=== PATIENT | female | born 1980 | race Caucasian/White ===

== ENCOUNTER 2019-08-01 11:32 | Emergency (ER) | payer MEDICARE, MEDICAID ==
--- OUTSIDE RECORDS SUMMARY | 2019-08-01 11:51 | XMS REPORT | Summary of Care ---
:1980 Author Organization [facility] Address [address] [address] Care Team Providers Name Role Phone Marj Tamayo Primary Care Provider Reason for Visit Reason Comments Thoracic Back Pain Encounter Details Date Type Department Care Team Description 07/05/2019 Office Visit [facility] - Zehra Huang, CRISTINA Midline thoracic back [facility] 10 [facility] pain, unspecified Therapy [address] chronicity (Primary [address] [place] [address] Dx) [address] [phone] [place] [address] [phone] Allergies Active Allergy Reactions Severity Noted Date Comments Ambien Swelling 06/01/2019 Bactrim Ds Hives Medium 06/01/2019 Duloxetine Hcl Other 06/01/2019 Worsening anxiety and panic documented as of this encounter (statuses as of 07/05/2019) Medications Medication Sig Dispensed Refills Start Date End Date Status Mirtazapine 45 MG Oral Take by mouth. 0 Active Tab ondansetron (ZOFRAN ODT) Take 4 mg by 0 Active 4 MG Oral TABLET mouth ONCE DISPERSIBLE NEEDED. ranitidine (ZANTAC) 300 Take 300 mg by 0 Active MG Oral Tab mouth DAILY. ALBUTEROL SULFATE ER PO Take by mouth. 0 Active Ascorbic Acid (VITAMIN Take by mouth. 0 Active C) 100 MG Oral Chew Tab BIOTIN PO Take by mouth. 0 Active Lansoprazole 15 MG Oral Take 15 mg by 60 Cap 3 06/24/2019 Active CAPSULE DELAYED RELEASE mouth TWICE DAILY. documented as of this encounter (statuses as of 07/05/2019) Active Problems No known active problemsdocumented as of this encounter (statuses as of 2018) Social History Tobacco Use Types Packs/Day Years Used Date Heavy Tobacco Smoker Cigarettes 1.5 27 Smokeless Tobacco: Never Used Sex Assigned at Date Recorded Not on file Job Start Date Occupation Industry Not on file Not on file Not on file Travel History Travel Start Travel End No recent travel history available. documented as of this encounter Last Filed Vital Signs Not on filedocumented in this encounter Progress Notes Zehra Huang, PT - 07/05/2019 9:30 AM EDT [facility] Treatment Note Outpatient Physical [facility] [address] [place] [id number] Treatment Number: 3 Referring Physician: Marj Tamayo Primary Diagnosis: ICD-9-CM ICD-10-CM 1. Midline thoracic back pain, unspecified chronicity 724.1 M54.6 Plan of Care Expiration Date: Time In: 919 Time Out: 50 Total Session Minutes: 30 Pain at Start of Care: 12/16 Pain at End of Care: Subjective Comments: Was sore after last treatment for a day or two but then felt better at the right shoulder blade. Interventions: Therapeutic Exercises (19753) Number of Exercises?: 8 Total Minutes (all Therapeutic Exercise): 20 Exercise #1 Exercise Name: prone i Reason for Exercise: Strengthening Location/Body Area: Shoulder;Thoracic Spine Sets/Reps: 10 Exercise #2 Exercise Name: cervical retraction Reason for Exercise: Strengthening Location/Body Area: Cervical Spine Sets/Reps: 10 Exercise #5 Exercise Name: open book Reason for Exercise: Joint Mobility Location/Body Area: Thoracic Spine Sets/Reps: 8 Exercise #6 Exercise Name: spinal rotation Reason for Exercise: Joint Mobility Location/Body Area: Cervical Spine Sets/Reps: 8 Exercise #7 Exercise Name: cat and camel Reason for Exercise: Joint Mobility Location/Body Area: Thoracic Spine Sets/Reps: 8 Estim Unattended (Commercial [id number]) Reason for Use: Pain Control Body Area: right side thoracic Waveform Used: Interferential Total Minutes: 10 Assessment: Patient demonstrates improved recall of HEP. Patient also reports ongoing difficulty in reaching, lifting, prolonged positions. Skilled Physical Therapy services are required to address ongoing functional and objective limitations/impairments including decreased scapular stabilizer strength, impaired posture, decreased cervical and thoracic ROM, pain Plan for Next Visit: Continue per POC. Add more strengthening as tolerated. Total UNTIMED Code Treatment Minutes: 10 Total TIMED Code Treatment Minutes: 20 Total Treatment Minutes: 30 Author: Zehra Huang, CRISTINA 07/05/2019 09:47 documented in this encounter Plan of Treatment Date Type Specialty Care Team Description 07/07/2019 Office Visit Physical Therapy Zehra Huang, PT [address] [place] [address] [place] [address] [phone] 07/08/2019 Office Visit Family Practice Majr Tamayo NP [address] [place] [address] [phone] 07/08/2019 Ancillary Procedure Radiology 07/13/2019 Office Visit Physical Therapy Zehra Huang, PT [address] [place] [address] [place] [address] [phone] 07/13/2019 Office Visit Physical Therapy Zehra Huang, PT [address] [place] [address] [place] [address] [phone] 07/15/2019 Office Visit Physical Therapy Zehra Huang, PT [address] [place] [place] [address] [phone] 07/27/2019 Office Visit Gastroenterology Lisa Allen NP [address] [address] [phone] Health Maintenance Due Date Last Done Comments MEDICARE ANNUAL WELLNESS VISIT 1980 PAP SMEAR 1980 PNEUMOCOCCAL 0-64 YRS (1 of - 1985 PPSV23) HIV SCREENING 1994 LIPID DISORDER SCREENING 1997 MAMMOGRAM (SCREENING) 2019 INFLUENZA VACCINE (#1) 2019 DEPRESSION SCREENING 06/15/2020 06/15/2019 HPV IMMUNIZATION SERIES Aged Out No longer eligible based on patient's age to complete this topic MENINGOCOCCAL VACCINE IMM Aged Out No longer eligible based on patient's age to complete this topic documented as of this encounter Results Not on filedocumented in this encounter Visit Diagnoses Diagnosis Midline thoracic back pain, unspecified chronicity - Primary documented in this encounter Insurance Payer Benefit Plan / Subscriber ID Effective Dates Phone Address Type Group [facility] xxxxxxxxxxxx 2019-Prese [employer] MEDICARE MEDICARE BLUE nt ADVANTAGE PPO (302/802) MEDICAID [facility] xxxxxxxx 2019-Presen Medicaid [place] MEDICAID t documented as of this encounter
--- OUTSIDE RECORDS SUMMARY | 2019-08-01 11:51 | XMS REPORT | Summary of Care ---
:1980 Author Organization [facility] Address [address] [address] Care Team Providers Name Role Phone Marj Tamayo Primary Care Provider Reason for Visit Reason Comments Thoracic Back Pain Refer to Department Only (Routine) Status Reason Specialty Diagnoses / Referred By Referred To Procedures Contact Contact Pending Review Physical Diagnoses Midline thoracic back pain, unspecified chronicity [facility] [address] [address] [address] Phone: [place], [place] [phone] Fax: Encounter Details Date Type Department Care Team Description 06/25/2019 Office Visit [facility] - Zehra Huang PT Midline thoracic back [address] pain, unspecified Therapy [address] chronicity (Primary [address] [place] [address] Dx) [address] [phone] [place] [phone] Allergies Active Allergy Reactions Severity Noted Date Comments Ambien Swelling 06/01/2019 Bactrim Ds Hives Medium 06/01/2019 Duloxetine Hcl Other 06/01/2019 Worsening anxiety and panic documented as of this encounter (statuses as of 06/25/2019) Medications Medication Sig Dispensed Refills Start Date [...] as of this encounter (statuses as of 06/25/2019) Active Problems No known active problemsdocumented as [...] encounter Progress Notes Zehra Huang, PT - 06/25/2019 8:30 AM EDT [facility] Initial Evaluation Outpatient Physical Therapy [facility] [address] [place] [phone] Patient: Claudia Benson : 1980 Date of Service: 06/25/2019 Referring Physician: Marj Tamayo Primary Diagnosis: ICD-9-CM ICD-10-CM 1. Midline thoracic back pain, unspecified chronicity 724.1 M54.6 Time In: 0900 Time Out: 1000 Subjective: She is a 39-y.o.-year-old female who presents for outpatient physical therapy with a chief complaint of neck and mid back pain. Pain starts at C7 and radiates into the back. No pain at thebase of the head. Feels like there is a nerve pinched on the right between the shoulder blade and the spine and then sometimes the first four fingers go numb/tingling. If uses the arm a lot the numbness increases. Fingers also get shaky when she tries to open the hand. The right 4th and 5th fingers on the left also go numb. Gets migraines and headaches. Jaw locks and pops on the left. Takes tylenol for pain. Pain fluctuates between 5/10 and 10/10 on a daily basis. Prolonged positions increase backand neck pain. Using the arm increases n/t on the right. Yelling and opening the mouth too wide increases the left side jaw pain. Inquired about muscle relaxer's which I discussed was not in my scope. C2-C7 small disc bulge per MRI in 2017. Prior Functional Status: pain with adl's Current Functional Status: unable to complete adls without rest breaks and modifications Objective: Past Medical History: Diagnosis Date Bipolar 1 disorder (HCC) not seeing Depression BiPolar Gastroparesis GERD (gastroesophageal reflux disease) Past Surgical History: Procedure Laterality Date LAPAROSCOPIC TUBAL LIGATION 2009 Current Outpatient Medications: ALBUTEROL SULFATE ER PO, Take by mouth., Disp: , Rfl: Ascorbic Acid (VITAMIN C) 100 MG Oral Chew Tab, Take by mouth., Disp: , Rfl: BIOTIN PO, Take by mouth., Disp: , Rfl: Lansoprazole 15 MG Oral CAPSULE DELAYED RELEASE, Take 15 mg by mouth TWICE DAILY., Disp: 60 Cap, Rfl: 3 Mirtazapine 45 MG Oral Tab, Take by mouth., Disp: , Rfl: ondansetron (ZOFRAN ODT) 4 MG Oral TABLET DISPERSIBLE, Take 4 mg by mouth ONCE NEEDED., Disp: , Rfl: ranitidine (ZANTAC) 300 MG Oral Tab, Take 300 mg by mouth DAILY., Disp: , Rfl: Allergies Allergen Reactions Bactrim Ds Hives Ambien Swelling Cymbalta [Duloxetine Hcl] Other Worsening anxiety and panic Posture: Forward head with rounded shoulders Palpation: Pain with palpation to masseters, left upper trap, bilateral cervical and thoracic parapsinals, right rhomboid/mid trap. Pain at Baseline: 5/10 Cervical AROM: Flexion: WNL with pain from T3 to lumbar spine Extension: WNL Rotation R: WNL Rotation L: 60 with right side shoulder blade pain Sidebending R: 25 degrees with contralateral side Sidebending L: 25 degrees with contralateral pain Protraction: WNL Retraction: WNL with posterior pain in paraspinals Cervical PROM with Overpressure: Full ROM with upper trap tautness Neurological Review: Upper Extremity Myotomes: intact Upper Extremity Dermatomes: intact Upper Extremity Reflexes: 2+ Joint Mobility Assessment: hypomobilty noted at thoracic spine but patient also was guarding d/t pain Tinnels positive on the right Special Tests: Spurlings:negative Distraction: negative ULTTA: Negative on the left, positive for median nerve on right. Ulnar nerve test increases upper arm pain but denies n/t. Cervical Flexion/Rotation Test: negative First Rib Spring: negative Alar Ligament Test: negative Thoracic ROM 40% bilaterally with central thoracic pain Jaw deviates to the left when opening and "pops" at end range Plan of Care Plan of Care Start Date: 06/25/19 Plan of Care Expiration Date: 09/25/19 Prior Function Comment: pain with adl's Current Function Comment: unable to complete adls without rest breaks and modifications Rehabilitative Prognosis: Guarded Planned Intervention(s): PT Eval Moderate Complexity (90646);Therapeutic Exercise (Timed) (65257);Ultrasound (Timed) (99830);Manual Therapy (Timed) ( 74168);Moist Hot Pack (95803);Cold Pack (40849) Frequency of Treatments: 2 times weekly Duration of Treatments: 3 months History Components: Moderate (1-2 personal factors and/or comorbidities) Examination of Body Systems/Components: Moderate (Addressing a total of 3 or more elements) Clinical Presentation: Evolving - changing/inconsistent clinical characteristics (Moderate) Clinical Decision Making (complexity): Moderate Treatment Number: 1 Total Time of Evaluation: 30 Outcome Tools Used: FOTO Assessment: Patient presents with diffuse reports of pain. Displays decreased cervical left rotation and bilateral lateral flexion with decreased thoracic rotation and hypomobility. Does not tolerate palpation to thoracic musculature but trigger points noted in right levator scap, upper trap and bilateral paraspinals. Tightness in bilateral masseter may be contributing to TMJ dysfunction. Positive median and ulnar nerve ULTT noted. Postural impairments are contributing to soft tissue dysfunctions. Would benefit from therapy to improve posture, scapular stabilizer and deep cervical flexor strength. Was Physical Therapy treatment performed at this visit? Yes: Interventions: Therapeutic Exercises (97121) Patient Education/Home Exercise Program: HEP given and reviewed; posture discussed as well as dx/muscle imbalances Number of Exercises?: 5 Total Minutes (all Therapeutic Exercise): 30 Exercise #1 Exercise Name: Scap retraction Reason for Exercise: Strengthening Location/Body Area: Shoulder;Thoracic Spine Sets/Reps: 10 Exercise #2 Exercise Name: cervical retraction Reason for Exercise: Strengthening Location/Body Area: Cervical Spine Sets/Reps: 10 Exercise #3 Exercise Name: median nerve glide Reason for Exercise: Muscle Performance Location/Body Area: Thoracic Spine Sets/Reps: 8 Exercise #4 Exercise Name: TMJ popsickle stick stretch Reason for Exercise: Flexibility Location/Body Area: Cervical Spine Sets/Reps: 2x10 seconds Exercise #5 Exercise Name: open book Reason for Exercise: Joint Mobility Location/Body Area: Thoracic Spine Sets/Reps: 8 Plan for Next Visit: Continue per POC. Estim prn, review HEP. Heat with therapeutic exercise prn Evaluation Complexity Assessment: History Components: Moderate (1-2 personal factors and/or comorbidities) Examination of Body Systems/Components: Moderate (Addressing a total of 3 or more elements) Clinical Presentation: Evolving - changing/inconsistent clinical characteristics (Moderate) Clinical Decision Making (complexity): Moderate Treatment Number: 1 Total Time of Evaluation: 30 Total Number of Timed Code Treatment Minutes: 30 Author: Zehra Huang PT 06/25/2019 13:53 documented in this encounter Plan of Treatment Date Type Specialty Care Team Description 06/29/2019 Office Visit Physical Therapy Zehra Huang, PT [address] [place] [address] [phone] 07/01/2019 Office Visit Physical Therapy Zehra Huang, PT [address] [place] [address] [phone] 07/02/2019 Nurse/Clinical Support Internal Medicine 07/05/2019 Office Visit Physical Zehra Rasmussen, PT [address] [place] [address] [phone] 07/07/2019 Office Visit Physical Therapy Zehra Huang, PT [address] [place] [address] [phone] 07/08/2019 Office Visit Family Practice Marj Tamayo, CHRIS [address] [place] [address] [phone] 07/08/2019 Ancillary Procedure Radiology 07/27/2019 Office Visit Gastroenterology Lisa Allen, AVIONICS TECHNICIAN [address] [address] [phone] Health Maintenance Due Date Last Done Comments MEDICARE ANNUAL WELLNESS VISIT 1979 PAP SMEAR 1979 PNEUMOCOCCAL 0-64 YRS (1 of 1 - 1985 PPSV23) HIV SCREENING 1994 LIPID [...] ID Effective Dates Phone Address Type Group [facility] xxxxxxxxxxxx 2019-Prese [employer] MEDICARE MEDICARE BLUE nt ADVANTAGE PPO (302/802) MEDICAID [facility] xxxxxxxx 2019-Presen Medicaid [place] MEDICAID t documented as of this encounter
--- OUTSIDE RECORDS SUMMARY | 2019-08-01 11:51 | XMS REPORT | Summary of Care ---
:1980 Author Organization [facility] Address [address] [address] Care Team Providers Name Role Phone Marj Tamayo Primary Care Provider Reason for Visit Reason Comments Thoracic Back Pain Encounter Details Date Type Department Care Team Description 07/15/2019 Office Visit [facility] - Zehra Huang, CRISTINA Midline thoracic back [place] [facility] pain, unspecified Therapy [address] chronicity (Primary [address] [place] [address] Dx) [address] [phone] [place] [address] [phone] Allergies Active Allergy Reactions Severity Noted Date Comments Ambien Swelling 06/01/2019 Bactrim Ds Hives Medium 06/01/2019 Duloxetine Hcl Other 06/01/2019 Worsening anxiety and panic documented as of this encounter (statuses as of 07/15/2019) Medications Medication Sig Dispensed Refills Start Date End Date Status ondansetron (ZOFRAN ODT) Take 4 mg by [...] Active CAPSULE DELAYED RELEASE mouth TWICE DAILY. Mirtazapine 45 MG Oral Take 1 Tab by 30 Tab 3 07/08/2019 Active TabIndications: Bipolar mouth DAILY. 1 disorder (HCC) Varenicline Tartrate 0.5 Take 1 Package 1 Kit 0 07/08/2019 Active MG X 11 & 1 MG X 42 Oral by mouth MiscIndications: Tobacco DIRECTED. dependence gabapentin (NEURONTIN) Take 1 Cap by 60 Cap 1 07/08/2019 Active 100 MG Oral mouth TWICE CapIndications: Numbness DAILY. and tingling in right hand diclofenac (VOLTAREN) 1 2 g by Topical 1 Tube 1 07/08/2019 Active % Transdermal route FOUR TIMES GelIndications: Spinal DAILY. stenosis of cervicothoracic region documented as of this encounter (statuses as of 07/15/2019) Active Problems Problem Noted Date GERD (gastroesophageal reflux disease) Gastroparesis Depression Bipolar 1 disorder Overview: not seeing MH documented as of this encounter (statuses as of 07/15/2019) Social History Tobacco Use Types Packs/Day Years [...] on filedocumented in this encounter Progress Notes Zehar Huang, PT - 07/15/2019 9:00 AM EST [facility] Treatment Note Outpatient Physical Therapy Services [facility] [address] [place] [phone] Treatment Number: 4 Referring Physician: Marj Tamayo Primary Diagnosis: ICD-9-CM ICD-10-CM 1. Midline thoracic back pain, unspecified chronicity 724.1 M54.6 Plan of Care Expiration Date: Time In: 0900 Time Out: 929 Total Session Minutes: 30 Pain at Start of Care: 5/10 Pain at End of Care: Subjective Comments: Whole back is hurting her. Doesn't feel like gabapentin is helping her back pain. Right hand and shoulder blade has been better but no change in the other pains. Wonders if she should be on muscle relaxers. Interventions: Therapeutic Exercises (01206) Number of Exercises?: 8 Total Minutes (all Therapeutic Exercise): 20 Exercise #2 Exercise Name: cervical retraction Reason for Exercise: Strengthening Location/Body Area: Cervical Spine Sets/Reps: 10 Exercise #3 Exercise Name: trunk rotation Reason for Exercise: Joint Mobility Location/Body Area: Lumbar Spine Sets/Reps: 8 Exercise #4 Exercise Name: piriformis stretch Reason for Exercise: Flexibility Location/Body Area: Lumbar Spine Sets/Reps: 3x30 seconds Exercise #5 Exercise Name: open book Reason for Exercise: Joint Mobility Location/Body Area: Thoracic Spine Sets/Reps: 8 Estim Unattended (Commercial 08909) Reason for Use: Pain Control Body Area: right side thoracic Waveform Used: Interferential Total Minutes: 10 Improved tolerance to open book and cervical rotation. Assessment: Patient demonstrates improved thoracic rotation. Diffuse complaints of pain with fear avoidance behaviors noted. Patient also reports ongoing difficulty in sleeping, lifting, reaching. Skilled Physical Therapy services are required to address ongoing functional and objective limitations/ impairments including decreased ROM, impaired posture, decreased core and scapular stabilizer strength. Plan for Next Visit: Continue per POC. Add LTR and piriformis to HEP Total UNTIMED Code Treatment Minutes: 10 Total TIMED Code Treatment Minutes: 20 Total Treatment Minutes: 30 Author: Zehra Huang PT 07/15/2019 11:01 documented in this encounter Plan of Treatment Date Type Specialty Care Team Description 07/19/2019 Ancillary Procedure Radiology 07/19/2019 Ancillary Procedure Radiology 07/22/2019 Office Visit Physical Therapy Zehra Huang, PT [address] [place] [address] [phone] 07/27/2019 Office Visit Gastroenterology Lisa Allen NP [address] [address] [phone] 07/29/2019 Office Visit Physical Therapy Zehra Huang, PT [address] [place] [address] [phone] 08/03/2019 Office Visit Family Practice Marj Tamayo NP [address] [place] [address] [phone] Health Maintenance Due Date Last Done Comments MEDICARE ANNUAL WELLNESS VISIT 1980 PNEUMOCOCCAL 0-64 YRS (1 of 1 - 1985 PPSV23) HIV SCREENING 1994 LIPID DISORDER SCREENING 1997 INFLUENZA VACCINE (#1) 2019 DEPRESSION SCREENING 06/15/2020 06/15/2019 MAMMOGRAM (SCREENING) 07/08/2020 07/08/2019 PAP SMEAR 05/26/2021 05/26/2018 HPV IMMUNIZATION SERIES Aged Out No longer eligible based on patient's age to complete this topic MENINGOCOCCAL VACCINE IMM Aged Out No longer eligible based on patient's age to complete this topic documented as of this encounter Goals Goal Patient Goal Associated Recent Patient-Stated? Author Type Problems Progress Depression Depression No lonny Tamayo (PHQ-9) Marj, total score < 5 [employer] Note: This is an individualized treatment (depression) goal for Claudia Benson: Displayed above is your goal for a depression screening (PHQ-9) score that would indicate good control of your depression. Keep a regular sleep schedule Lifestyle Marj Flores NP Note: This is an individualized lifestyle goal for Claudia Benson: Please maintain a regular sleep schedule. This may help with some symptoms of depression. Take all prescribed medications as Self-management No Marj Tamayo NP directed Note: This is an individualized self-management goal for Claudia Benson: Please take all prescribed medications as directed. 1. Do not skip doses. If you cannot afford your medications, talk with your doctor. 2. Use a pill reminder system such as a pill box if needed. Your pharmacist can help you with this. 3. Contact your Pharmacy 5 days before your medication runs out. If you cannot take your medications for any reasons, talk with your doctor. 4. Please bring all of your medication bottles and inhalers (or a list of all your medications/inhalers) with you to every visit. Potential barriers to meeting all of your care plan goals will continue to be addressed on an ongoing basis. documented as of this encounter Results Not on filedocumented in this encounter Visit Diagnoses Diagnosis Midline thoracic back pain, unspecified chronicity - Primary documented in this encounter Insurance Payer Benefit Plan / Subscriber ID Effective Dates Phone Address Type Group [employer] xxxxxxxxxxxx 2019-[employer] MEDICARE MEDICARE BLUE nt ADVANTAGE PPO (302/802) MEDICAID [facility] xxxxxxxx 2019-Presen Medicaid [place] MEDICAID t documented as of this encounter
--- OUTSIDE RECORDS SUMMARY | 2019-08-01 11:51 | XMS REPORT | Summary of Care ---
:1980 Author Organization [facility] Address [address] [address] Care Team Providers Name Role Phone Marj Tamayo Primary Care Provider Reason for Visit Reason Comments Thoracic Back Pain Encounter Details Date Type Department Care Team Description 07/01/2019 Office Visit [facility] - Zehra Huang, CRISTINA Midline thoracic back [place] [facility] [address] pain, unspecified Therapy [address] chronicity (Primary [address] [place] [place] [address] Dx) [address] [phone] [place] [address] [phone] Allergies Active Allergy Reactions Severity Noted Date Comments Ambien Swelling 06/01/2019 Bactrim Ds Hives Medium 06/01/2019 Duloxetine Hcl Other 06/01/2019 Worsening anxiety and panic documented as of this encounter (statuses as of 07/01/2019) Medications Medication Sig Dispensed Refills Start Date [...] as of this encounter (statuses as of 07/01/2019) Active Problems No known active problemsdocumented as [...] encounter Progress Notes Zehra Huang, PT - 07/01/2019 11:00 AM EDT [facility] Treatment Note Outpatient Physical Therapy [facility] [address] [place] [id number] Treatment Number: 2 Referring Physician: Marj Tamayo Primary Diagnosis: ICD-9-CM ICD-10-CM 1. Midline thoracic back pain, unspecified chronicity 724.1 M54.6 Plan of Care Expiration Date: Time In: 1050 Time Out: 1120 Total Session Minutes: 30 Pain at Start of Care: 5/10 Pain at End of Care: 5/10 Subjective Comments: Right shoulder blade pinch is still there. Was very sore for a day after PT but than the right arm felt good for a few days. Interventions: Therapeutic Exercises (88096) Total Minutes (all Therapeutic Exercise): 20 Exercise #1 Exercise Name: Scap retraction Reason [...] Mobility Location/Body Area: Thoracic Spine Sets/Reps: 8 Modalities Modalities Needed?: Estim Unattended (Commercial [id number]) Estim Unattended (Commercial [id number]) Reason for Use: Pain Control Body Area: right side thoracic Waveform Used: Interferential Total Minutes: 10 Assessment: Patient demonstrates good recall of HEP but requires cueing for body mechanics. Patient also reports ongoing difficulty in sleeping, reaching, lifting, prolonged positions. Skilled Physical Therapy services are required to address ongoing functional and objective limitations/impairmentsincluding decreased cervical and thoracic ROM, impaired posture, decreased neural length of median nerve on right, decreased scapular stabilizer strength. Plan for Next Visit: Continue per POC. Total UNTIMED Code Treatment Minutes: 10 Total TIMED Code Treatment Minutes: 20 Total Treatment Minutes: 30 Author: Zehra Huang, PT 07/01/2019 11:54 documented in this encounter Plan of Treatment Date Type Specialty Care Team Description 07/02/2019 Nurse/Clinical Support Internal Medicine 07/05/2019 Office Visit Physical Therapy Zehra Huang, PT [address] [facility] [place] [address] [phone] 07/07/2019 Office Visit Physical Therapy Zehra Huang, PT [address] [facility] [place] [address] [phone] 07/08/2019 Office Visit Family Practice Marj Tamayo NP [address] [place] [address] [phone] 07/08/2019 Ancillary Procedure Radiology 07/27/2019 Office Visit Gastroenterology Lisa Allen NP [address] [address] Health Maintenance Due Date Last Done Comments [...] ID Effective Dates Phone Address Type Group DEBORAH COKER xxxxxxxxxxxx 2019-Prese [employer] MEDICARE MEDICARE BLUE nt ADVANTAGE PPO ([phone]) MEDICAID [facility] xxxxxxxx 2019-Presen Medicaid [place] MEDICAID t documented as of this encounter
--- OUTSIDE RECORDS SUMMARY | 2019-08-01 11:51 | XMS REPORT | Summary of Care ---
:1980 Author Organization [facility] Address [address] [facility] [address] [address] Care Team Providers Name Role Phone Marj Tamayo Primary Care Provider Reason for Visit Reason Comments Follow-up 1-month follow-up on gastroparesis. Encounter Details Date Type Department Care Team Description 07/27/2019 Office Visit Marianna Allen Irritable bowel syndrome with constipation (Primary Dx); Gastroenterology/Hep Lisa Perez NP Gastroparesis atology [id number] [facility] [address] [address] [place] [address] Allergies Active Allergy Reactions Severity Noted Date Comments Ambien Swelling 06/01/2019 Bactrim Ds Hives Medium 06/01/2019 Duloxetine Hcl Other 06/01/2019 Worsening anxiety and panic documented as of this encounter (statuses as of 07/27/2019) Medications Medication Sig Dispensed Refills Start Date End Date Status ondansetron (ZOFRAN Take 4 mg by 0 Active ODT) 4 MG Oral TABLET mouth ONCE DISPERSIBLE NEEDED. ALBUTEROL SULFATE ER Take by 0 Active PO mouth. Ascorbic Acid (VITAMIN Take by 0 Active C) 100 MG Oral Chew mouth. Tab BIOTIN PO Take by 0 Active mouth. Lansoprazole 15 MG Take 15 mg by 60 Cap 3 06/24/2019 Active Oral CAPSULE DELAYED mouth TWICE RELEASE DAILY. Mirtazapine 45 MG Oral Take 1 Tab by 30 Tab 3 07/08/2019 Active TabIndications: mouth DAILY. Bipolar 1 disorder (HCC) Varenicline Tartrate Take 1 1 Kit 0 07/08/2019 Active 0.5 MG X 11 & 1 MG X Package by 42 Oral mouth MiscIndications: DIRECTED. Tobacco dependence gabapentin (NEURONTIN) Take 1 Cap by 60 Cap 1 07/08/2019 Active 100 MG Oral mouth TWICE CapIndications: DAILY. 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 Gastroparesis lamoTRIgine 50 MG Oral Take 50 mg by 60 Tab 0 07/20/2019 Active TABLET mouth TWICE DISPERSIBLEIndications DAILY. Take : Bipolar 1 disorder one tablet (HCC) daily for one week, then increase to one tablet twice daily. famotidine (PEPCID) 20 Take 1 Tab by 60 Tab 0 07/20/2019 Active MG Oral mouth TWICE TabIndications: DAILY. Gastroesophageal reflux disease, esophagitis presence not specified linaCLOtide 72 MCG Take 1 Cap by 30 Cap 0 07/27/2019 Active Oral Cap mouth DAILY. ranitidine (ZANTAC) Take 300 mg 90 Tab 3 07/20/2019 Discontinued 300 MG Oral by mouth 9 TabIndications: DAILY. Gastroparesis Nutritional Take 1 Bottle 30 Bottle 3 07/20/2019 Discontinued Supplements (ENSURE by mouth 9 COMPLETE SHAKE) Oral DAILY. 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 Never 07/20/2019 How many drinks containing alcohol do you have on a typical Not asked day when you are drinking? How often do you have six or more drinks on one occasion? Not asked Sex Assigned at Date Recorded Not on file Job Start Date Occupation Industry Not on file Not on file Not on file Travel History Travel Start Travel End No recent travel history available. documented as of this encounter Last Filed Vital Signs Vital Sign Reading Time Taken Comments Blood Pressure 112/68 07/27/2019 8:36 AM EST Pulse 66 07/27/2019 8:36 AM EST Temperature 36.4 07/27/2019 8:36 AM EST C (97.6 F) Respiratory Rate - - Oxygen Saturation - - Inhaled Oxygen Concentration - - Weight 44.9 kg (99 lb) 07/27/2019 8:36 AM EST Height 154.9 cm (5' 1") 07/27/2019 8:36 AM EST Body Mass Index 18.71 07/27/2019 8:36 AM EST documented in this encounter Patient Instructions Patient InstructionsLisa Allen NP - 07/27/2019 8:20 AM EST1. Will try Linzess as directed, once you start this you will stop the Miralax 2. Continue the Lansoprazole and Reglan as directed 3. Follow up in the next 2-4 weeks If you have not already been screened for Hepatitis C we would be happy to do that for you today. Currently we recommend screening for hepatitis C virus (HCV ) infection in persons at high risk for infection, and to adults born between 1945 and 1965. Thank you for choosing the [facility] for your needs today! -Lisa Allen N.P. , Please call if you need to cancel or change your appt. time. Thank you for choosing [facility] for your health care needs, and for consulting with [facility] today. You may receive a survey following this visit, or after an upcoming hospital stay. As easy as it is to feel overloaded with surveys, we are required to send them out randomly and they do provide important feedback so that we may serve your needs in the best way. Please do take the few minutes required to complete the survey if you receive one. We get them too, after seeing the doctor, and they only take a few minutes to complete. documented in this encounter Progress Notes Lisa Allen NP - 07/27/2019 8:20 AM EST PATIENT: Claudia Benson : 1980 DATE OF SERVICE: 07/27/2019 REFERRING PRACTITIONER: Lisa Allen PRIMARY CARE PROVIDER: Marj Tamayo CHIEF COMPLAINT: Chief Complaint Patient presents with Follow-up 1-month follow-up on gastroparesis. Subjective HISTORY OF PRESENT ILLNESS: Claudia Benson is a 39-y.o. female who presents for a follow-up. She reports abdominal pain, and constipation cycles. In recent weeks had been having increased nausea, a change in PPI did not provide relief, she was seen by her PCP whom placed her on Reglan which she feels is helping. She now complains of constipationno longer relieved by her Miralax. Today her biggest complaint of of bloating and gas. She admits that she is not eating much, she relates due to her gastroparesis however likely also complicated by her depression and bipolar. Was recently restarted on her psychiatric medications by her PCP. She reports having been on Linzess in the past. Denies dysphagia, vomiting, melena, hamatemesis, hematochezia, diarrhea, jaundice, fevers, chills, night sweats, weight loss, easy bruising, chest pain, shortness of breath, dysuria, hematuria, pyuria,joint pains, acholic stools, dark urine or systemic pruritis. Review of previous records from [facility]: 04/02/2018 EGD positive for gastritis, h pylori negative. 04/02/2018 colonoscopy positive for 1 small hyperplastic polyp, otherwise unremarkable. 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 Ascorbic Acid (VITAMIN C) 100 MG Oral Chew Tab Take by mouth. BIOTIN PO Take by mouth. diclofenac (VOLTAREN) 1 % Transdermal Gel 2 g by Topical route FOUR TIMES DAILY. famotidine (PEPCID) 20 MG Oral Tab Take 1 Tab by mouth TWICE DAILY. gabapentin (NEURONTIN) 100 MG Oral Cap Take 1 Cap by mouth TWICE DAILY. lamoTRIgine 50 MG Oral TABLET DISPERSIBLE Take 50 mg by mouth TWICE DAILY. Take one tablet daily for one week, then increase to one tablet twice daily. Lansoprazole 15 MG Oral CAPSULE DELAYED RELEASE Take 15 mg by mouth TWICE DAILY. linaCLOtide 72 MCG Oral Cap Take 1 Cap by mouth DAILY. metoclopramide (REGLAN) 10 MG Oral Tab Take 1 Tab by mouth FOUR TIMES DAILY. Mirtazapine 45 MG Oral Tab Take 1 Tab by mouth DAILY. ondansetron (ZOFRAN ODT) 4 MG Oral TABLET DISPERSIBLE Take 4 mg by mouth ONCE NEEDED. Varenicline Tartrate 0.5 MG X 11 & 1 MG X 42 Oral Misc Take 1 Package by mouth DIRECTED. No current facility-administered medications for this visit. Allergies Allergen Reactions Bactrim Ds Hives Ambien Swelling Cymbalta [Duloxetine Hcl] Other Worsening anxiety and panic Social History Socioeconomic History Marital status: Single Spouse name: Not on file Number of children: Not on file Years of education: Not on file Highest education level: Not on file Occupational History Not on file Social Needs Financial resource strain: Not on file Food insecurity: Worry: Not on file Inability: Not on file Transportation needs: Medical: Not on file Non-medical: Not on file Tobacco Use Smoking status: Heavy Tobacco Smoker Packs/day: 1.50 Years: 27.00 Pack years: 40.50 Types: Cigarettes Smokeless tobacco: Never Used Substance and Sexual Activity Alcohol use: Never Frequency: Never Drug use: Yes Types: Marijuana Sexual activity: Yes Partners: Male Comment: tubal Lifestyle Physical activity: Days per week: Not on file Minutes per session: Not on file Stress: Not on file Relationships Social connections: Talks on phone: Not on file Gets together: Not on file Attends bahai service: Not on file Active member of club or organization: Not on file Attends meetings of clubs or organizations: Not on file Relationship status: Not on file Intimate partner violence: Fear of current or ex partner: Not on file Emotionally abused: Not on file Physically abused: Not on file Forced sexual activity: Not on file Other Topics Concern Not on file Social History Narrative Not on file REVIEW OF SYSTEMS: All remaining review of systems was negative except for as noted in the history of present illness/subjective. Objective PHYSICAL EXAMINATION: VITALS: BP 112/68 | Pulse 66 | Temp 97.6 F (36.4 C) | Ht 5' 1" ( 1.549 m) | Wt 99 lb (44.9 kg) | LMP 06/28/2019 | BMI 18.71 kg/m Body mass index is 18.71 kg/m. GENERAL: alert, oriented, no acute distress. HEENT: No scleral icterus, MMM Psych: Affect normal Neck: no lymphadenopathy LUNGS: clear to auscultation bilaterally. HEART: regular rhythm, no murmurs, no gallops, no rubs. ABDOMEN: general exam: soft, diffusely-tender, non-distended, without masses or organomegaly, normal active bowel sounds, Carballo's sign negative. Extrmities: no edema Skin: clear Neuro: gait normal, a&o x 3 RECTAL: exam deferred. Plan IMPRESSION/PLAN: ICD-9-CM ICD-10-CM 1. Irritable bowel syndrome with constipation 564.1 K58.1 2. Gastroparesis 536.3 K31.84 Patient Instructions 1. Will try Linzess as directed, once you start this you will stop the Miralax 2. Continue the Lansoprazole and Reglan as directed 3. Follow up in the next 2-4 weeks If you have not already been screened for Hepatitis C we would be happy to do that for you today. Currently we recommend screening for hepatitis C virus (HCV ) infection in persons at high risk for infection, and to adults born between 1945 and 1965. Thank you for choosing the [facility] for your needs today! -Lisa Allen NMaddy , Please call if you need to cancel or change your appt. time. Thank you for choosing [facility] for your health care needs, and for consulting with [facility] today. You may receive a survey following this visit, or after an upcoming hospital stay. As easy as it is to feel overloaded with surveys, we are required to send them out randomly and they do provide important feedback so that we may serve your needs in the best way. Please do take the few minutes required to complete the survey if you receive one. We get them too, after seeing the doctor, and they only take a few minutes to complete. Author: Lisa Allen NP 07/27/2019 09:31 documented in this encounter Plan of Treatment Date Type Specialty Care Team Description 07/29/2019 Office Visit Physical Therapy Zehra Huang, PT [address] [place] [address] [phone] 08/03/2019 Office Visit Family Practice Marj Tamayo NP [address] [place] [address] [phone] 08/16/2019 Ancillary Procedure Radiology 08/16/2019 Ancillary Procedure Radiology Health Maintenance Due Date Last Done Comments MEDICARE ANNUAL WELLNESS VISIT 1980 PNEUMOCOCCAL 0-64 YRS ( of - 1985 PPSV23) HIV SCREENING 1994 [...] Tamayo (PHQ-9) Marj, total score < 5 POTTERY STRIPER Note: This is an individualized treatment (depression) goal for Claudia Benson: Displayed above is your goal for a depression screening (PHQ-9) score that would indicate good control of your depression. Keep a regular sleep schedule Lifestyle No Marj Tamayo NP Note: This is an individualized lifestyle [...] filedocumented in this encounter Visit Diagnoses Diagnosis Irritable bowel syndrome with constipation - Primary Irritable bowel syndrome Gastroparesis documented in this encounter Insurance Payer Benefit Plan / Subscriber ID Effective Dates Phone Address Type Group [facility] [place] xxxxxxxxxxxx 2019-Prese [employer] MEDICARE MEDICARE BLUE nt ADVANTAGE PPO ([phone]) MEDICAID [facility] xxxxxxxx 2019-Presen Medicaid [place] MEDICAID t documented as of this encounter
--- OUTSIDE RECORDS SUMMARY | 2019-08-01 11:51 | XMS REPORT | Summary of Care ---
:1980 Author Organization [facility] Address [address] [address] Care Team Providers Name Role Phone Marj Tamayo Primary Care Provider Reason for Referral Refer to Department Only (Routine) Status Reason Specialty Diagnoses / Referred By Referred To Procedures Contact Contact Pending Review Physical Diagnoses Midline thoracic back pain, unspecified chronicity [facility] - [address] [place] [address] [place], [place] [address] [address] [address] Phone: [place], [place] [phone] Fax: Refer to Department Only (Routine) Status Reason Specialty Diagnoses / Referred By Referred To Procedures Contact Contact Pending Review Gastroenterology Diagnoses Irritable bowel syndrome with both constipation and diarrhea Marianna Tamayo NP Gastroenterolo [address] [facility] gy/Hepatology Rd [address] [place] [address] [address] [address] [place], [place] Phone: [phone] Phone: Scheduling Instructions Is the patient on cpap machine?No Is the patient on oxygen?No BP 108/50 | Pulse 87 | Temp 97.5 F (36.4 C) | SpO2 98% BMI Readings from Last 4 Encounters: No data found for BMI Controlled Substance Medications: Anticoagulant Medications: Psychiatric/Antianxiety Medications: Mirtazapine Antiretroviral Medications: Refer to Department Only (Routine) Status Reason Specialty Diagnoses / Referred By Referred To Procedures Contact Contact Pending Review PHYSIATRY Diagnoses Numbness and tingling in right hand Marj Tamayo NP [address] [place] [address] Diagnostic Testing (Routine) Status Reason Specialty Diagnoses / Referred By Referred To Procedures Contact Contact Authorized Diagnoses Tobacco dependence SOB (shortness of breath) Cough Marj Tamayo, Procedures PFT ROUTINE STUDIES [facility] [address] [place] [address] Reason for Visit Reason Comments Follow Up bronchitis-improving Nicotine Dependence would like chantix to quit smoking Mammogram family history Encounter Details Date Type Department Care Team Description 06/15/2019 Office Visit [facility] Marj Tamayo, Encounter to establish care (Primary Dx); Practice [facility] Screening for breast cancer; [address] [facility] [address] [facility] Midline thoracic back pain, unspecified chronicity; [place] [address] [place] [address] Irritable bowel syndrome with both constipation and diarrhea; [phone] Numbness and tingling in right hand; Tobacco dependence; SOB (shortness of breath); Cough Allergies Active Allergy Reactions Severity Noted Date Comments Ambien Swelling 06/01/2019 Bactrim Ds Hives Medium 06/01/2019 Duloxetine Hcl Other 06/01/2019 Worsening anxiety and panic documented as of this encounter (statuses as of 06/15/2019) Medications Medication Sig Dispensed Refills Start Date End Date Status albendazole (ALBENZA) 200 Take 200 mg by 0 Active MG Oral Tab mouth TWICE DAILY. Mirtazapine 45 MG Oral Take by mouth. 0 Active Tab ondansetron (ZOFRAN ODT) Take 4 mg by 0 Active 4 MG Oral TABLET mouth ONCE DISPERSIBLE NEEDED. predniSONE (DELTASONE) 20 Take 20 mg by 0 Active MG Oral Tab mouth DAILY. pantoprazole (PROTONIX) Take 40 mg by 0 Active 40 MG Oral Tab EC mouth DAILY. ranitidine (ZANTAC) 300 Take 300 mg by 0 Active MG Oral Tab mouth. ALBUTEROL SULFATE ER PO Take by mouth. 0 Active clarithromycin (BIAXIN) Take 1 Tab by 20 Tab 0 06/01/2019 Active 500 MG Oral mouth TWICE TabIndications: Acute DAILY. bronchitis, unspecified organism Ascorbic Acid (VITAMIN C) Take by mouth. 0 Active 100 MG Oral Chew Tab BIOTIN PO Take by mouth. 0 Active documented as of this encounter (statuses as of 06/15/2019) Active Problems No known active problemsdocumented as of this encounter (statuses as of 2018) Social History Tobacco Use Types Packs/Day Years Used Date Heavy Tobacco Smoker Cigarettes 1.5 27 Smokeless Tobacco: Never Used Tobacco Cessation: Ready to Quit: Yes; Counseling Given: Yes Sex Assigned at Date Recorded Not on file Job Start Date Occupation Industry Not on file Not on file Not on file Travel History Travel Start Travel End No recent travel history available. documented as of this encounter Last Filed Vital Signs Vital Sign Reading Time Taken Comments Blood Pressure 108/50 06/15/2019 9:55 AM EDT Pulse 87 06/15/2019 9:55 AM EDT Temperature 36.4 06/15/2019 9:55 AM EDT C (97.5 F) Respiratory Rate - - Oxygen Saturation 98% 06/15/2019 9:55 AM EDT Inhaled Oxygen Concentration - - Weight - - Height - - Body Mass Index - - documented in this encounter Patient Instructions Patient InstructionsMarj Tamayo NP - 06/15/2019 10:00 AM EDTRefer to GI. Refer to physiatry. Schedule physical therapy. Mammogram. Pulmonary Function Tests. F/u in 3 weeks for full physical exam and f/u on these issues. Will discuss chantix then - you needtime to get over recent illness. Welcome to [facility]. I encourage you to sign up for [employer] for on-line access. DIET AND EXERCISE: Exercise is recommended 150 minutes weekly: 30 minutes five days a week of moderate exercise such as walking. In addition is it recommended you have two days weekly of working all your major muscle groups (arms, legs) such as with weight lifting or other exercise. I recommend a well balanced healthy diet, portion control, drink plenty of fluids. The Mediterranean diet is an excellent diet. Be sure to get adequate sleep at night, 8 hours. If you cannot make an appointment please call to cancel 24 hours in advance so that appointment timecan be made available for another person. documented in this encounter Progress Notes Marj Tamayo NP - 06/15/2019 10:00 AM EDT PATIENT: Claudia Benson : 1980 DATE OF SERVICE: 06/15/2019 CHIEF COMPLAINT: Chief Complaint Patient presents with Follow Up bronchitis-improving Nicotine Dependence would like chantix to quit smoking Mammogram family history Subjective HISTORY OF PRESENT ILLNESS: Claudia Benson is a 39-y.o. female. HPI Here to establish care. She moved from [place]. Right hand first three fingers get numb, she has arthritis in her hands.her hands will swell and getstuck. 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 This is ongoing for years, but getting worse over that time. Never sought treatment before. She was taking celebrex for her hands previously as needed. She has bulging discs in her upper back, has had MRI done. She gets migraines which stem from her back and neck. Mild DJD. Never done physical therapy. Arthritis in knees as well. She exercises, stays active. Lungs - she's been smoking since 12, 1.5 ppd. She's quit 3 times previously. She did a medical study last time with patches (not nicotine patches). Nicotine patches cause a skin reaction, nicorette doesn't work. She feels her lungs are getting worse. Family members have COPD and emphysema. Recently treated for bronchitis. Has been on albuterol previously. Needed steroid tapering dose for lungs. Having shortness of breath at times, gets shortness of breath easily with activity, even walking from here to car, talking makes her feel shortness of breath. Coughing at times. Stomach problems - she has gastroparesis, severe GERD, three polyps removed from throat, stomack andintestine. Cycles between diarrhea and constipation. She takes gas ex over the counter, miralax, stool softeners, nothing helps. Has been on current meds for 4 years. She was on nexium for 3 years before that. Pap (21-65): Gets done yearly. Mammogram (40-75): never Family or personal history of breast or ovarian cancer: yes - aunt on moms. *If yes, f/u with [place] Family History Tool* Patient was seen at [facility] on 06/08/2019: CC: White patches on tongue. Diagnosed with Candidal Stomatitis Prescribed clotrimazole 10 mg akira - take one akira five times per day for 14 days. Patient was seen at [facility] on 05/29/2019: CC: Cough Diagnosed with acute sinusitis and bronchitis Treatment - rest and fluids, nasal saline rinse, warm compresses on the face. Doxycycline 100 mg one tablet twice daily for 7 days. Albuterol inhaler. Prednisone 20 mg tapering dose - 3 tabs 3 days,2 tabs 3 days, then 1 tab 3 days then 1/2 tab 4 days. Patient was seen at [facility] on 05/25/2019: CC: Med refill and itching. Diagnosis Helminthiasis, unspecified. Treatment: Metrogel vaginal - 1 application vaginally 1 time per day for 5 days. Refill of Remeron (for MDD) 45 mg daily. 14 day supply was sent and told to establish with a PCP. Past Medical History: Diagnosis Date Bipolar 1 disorder (HCC) not seeing Depression BiPolar Gastroparesis GERD (gastroesophageal reflux disease) History reviewed. No pertinent family history. Current Outpatient Medications Medication Sig albendazole (ALBENZA) 200 MG Oral Tab Take 200 mg by mouth TWICE DAILY. ALBUTEROL SULFATE ER PO Take by mouth. Ascorbic Acid (VITAMIN C) 100 MG Oral Chew Tab Take by mouth. BIOTIN PO Take by mouth. clarithromycin (BIAXIN) 500 MG Oral Tab Take 1 Tab by mouth TWICE DAILY. Mirtazapine 45 MG Oral Tab Take by mouth. ondansetron (ZOFRAN ODT) 4 MG Oral TABLET DISPERSIBLE Take 4 mg by mouth ONCE NEEDED. pantoprazole (PROTONIX) 40 MG Oral Tab EC Take 40 mg by mouth DAILY. predniSONE (DELTASONE) 20 MG Oral Tab Take 20 mg by mouth DAILY. ranitidine (ZANTAC) 300 MG Oral Tab Take 300 mg by mouth. No current facility-administered medications for this visit. [...] Used Substance and Sexual Activity Alcohol use: Not on file Drug use: Not on file Sexual activity: Not on file Lifestyle Physical activity: Days per week: Not on file Minutes per session: Not on file Stress: Not on file Relationships Social connections: Talks on phone: Not on file Gets together: Not on file Attends sikhism service: Not on file Active member of [...] file Social History Narrative Not on file Over the last 2 weeks, have you been feeling down, depressed, anxious, or hopeless?: 0 Over the past 2 weeks, have you felt little interest or pleasure in doing things ?: 1 REVIEW OF SYSTEMS: Review of Systems Constitutional: Negative for chills, fever and malaise/fatigue. HENT: Negative for congestion, sinus pain and sore throat. Respiratory: Positive for cough and shortness of breath. Cardiovascular: Negative for chest pain and palpitations. Gastrointestinal: Positive for abdominal pain, constipation and diarrhea. Negative for heartburn, nausea and vomiting. Musculoskeletal: Positive for back pain, joint pain (knees, right shoulder) and neck pain. Neurological: Positive for tingling and sensory change (right hand first three fingers). Objective PHYSICAL EXAM: VITALS: BP 108/50 | Pulse 87 | Temp 97.5 F (36.4 C) | SpO2 98% There is no height or weight on file to calculate BMI. Physical Exam Vitals signs and nursing note reviewed. Constitutional: General: She is not in acute distress. Appearance: Normal appearance. She is well-developed. She is not ill- appearing. Cardiovascular: Rate and Rhythm: Normal rate and regular rhythm. Heart sounds: Normal heart sounds. No murmur. No friction rub. No gallop. Pulmonary: Effort: Pulmonary effort is normal. No respiratory distress. Breath sounds: Normal breath sounds. Abdominal: General: Abdomen is flat. Bowel sounds are normal. There is no distension. Palpations: Abdomen is soft. Abdomen is not rigid. There is no hepatomegaly, splenomegaly or mass. Tenderness: There is tenderness in the epigastric area. There is no right CVA tenderness, left CVA tenderness, guarding or rebound. Negative signs include Carballo's sign and McBurney's sign. Hernia: No hernia is present. Lymphadenopathy: Head: Right side of head: No submental, submandibular, tonsillar, preauricular or posterior auricular adenopathy. Left side of head: No submental, submandibular, tonsillar, preauricular or posterior auricular adenopathy. Cervical: No cervical adenopathy. Upper Body: Right upper body: No supraclavicular adenopathy. Left upper body: No supraclavicular adenopathy. Neurological: General: No focal deficit present. Mental Status: She is alert. Psychiatric: Mood and Affect: Mood and affect normal. Speech: Speech normal. Behavior: Behavior normal. Behavior is cooperative. ASSESSMENT / IMPRESSION: ICD-9-CM ICD-10-CM 1. Encounter to establish care V65.8 Z76.89 2. Screening for breast cancer V76.10 Z12.39 MAMMO SCREENING TOMOSYNTHESIS BILATERAL 3. Midline thoracic back pain, unspecified chronicity 724.1 M54.6 REFER TO PHYSICAL THERAPY / REHAB 4. Irritable bowel syndrome with both constipation and diarrhea 564.1 K58.2 REFER TO GI 5. Numbness and tingling in right hand 782.0 R20.0 REFER TO PHYSIATRY R20.2 6. Tobacco dependence 305.1 F17.200 PFT ROUTINE STUDIES 7. SOB (shortness of breath) 786.05 R06.02 PFT ROUTINE STUDIES 8. Cough 786.2 R05 PFT ROUTINE STUDIES Plan 1. Screening for breast cancer - MAMMO SCREENING TOMOSYNTHESIS BILATERAL; Future 2. Midline thoracic back pain, unspecified chronicity - REFER TO PHYSICAL THERAPY / REHAB; Standing 3. Irritable bowel syndrome with both constipation and diarrhea - REFER TO GI; Future 4. Numbness and tingling in right hand - REFER TO PHYSIATRY; Future 5. Tobacco dependence Will wait until she recovers from her bronchitis for chantix (or wellbutrin). - PFT ROUTINE STUDIES; Future Nicotine addiction. We discussed the importance of smoking cessation as well as different ways to approach it. The patient is ready to set action plan and implement, . A total of 5 minutes was spent with the patient today talking about smoking cessation. 6. SOB (shortness of breath) - PFT ROUTINE STUDIES; Future 7. Cough - PFT ROUTINE STUDIES; Future 8. Encounter to establish care Will get old records to see what's been done previously and where to go from here on her multiple chronic conditions. Follow up in 2-3 weeks. Author: Marj Tamayo NP 06/15/2019 11:22 documented in this encounter Plan of Treatment Date Type Specialty Care Team Description 06/24/2019 Office Visit Gastroenterology Lisa Allen NP [address] [address] [phone] 06/25/2019 Office Visit Physical Therapy Zehra Huang, PT [address] [place] [address] [phone] 07/02/2019 Nurse/Clinical Support Internal Medicine 07/08/2019 Office Visit Family Practice Marj Tamayo NP [address] [place] [address] [phone] 07/08/2019 Ancillary Procedure Radiology Name Type Priority Associated Diagnoses Order Schedule PFT ROUTINE STUDIES Pulmonary Routine Tobacco dependence Expected: SOB (shortness of 06/15/2019, breath) Expires: 12/12/2019 Cough MAMMO SCREENING Imaging Routine Screening for breast Expected: TOMOSYNTHESIS BILATERAL cancer 06/15/2019, Expires: 09/12/2020 Name Type Priority Associated Diagnoses Order Schedule REFER TO PHYSIATRY Referral Routine Numbness and tingling in Expected: 04/2019, right hand Expires: 06/15/2020 REFER TO GI Referral Routine Irritable bowel syndrome Expected: 06/15/2019, with both constipation Expires: 06/15/2020 and diarrhea REFER TO PHYSICAL Referral Routine Midline thoracic back 99 Occurrences THERAPY / REHAB pain, unspecified starting 06/15/2019 chronicity until 06/15/2020 Health Maintenance Due Date Last Done Comments PAP SMEAR 1980 PNEUMOCOCCAL 0-64 YRS (1 [...] filedocumented in this encounter Visit Diagnoses Diagnosis Encounter to establish care - Primary Other reasons for seeking consultation Screening for breast cancer Breast screening, unspecified Midline thoracic back pain, unspecified chronicity Irritable bowel syndrome with both constipation and diarrhea Numbness and tingling in right hand Disturbance of skin sensation Tobacco dependence Tobacco use disorder SOB (shortness of breath) Shortness of breath Cough documented in this encounter Insurance Payer Benefit Plan / Subscriber ID Effective Dates Phone Address Type Group [place] xxxxxxxx 2019-Present [place] documented as of this encounter"
--- OUTSIDE RECORDS SUMMARY | 2019-08-01 11:51 | XMS REPORT | Summary of Care ---
:1980 Author Organization [facility] Address [address] [facility] [place] [address] Care Team Providers Name Role Phone Marj Tamayo Primary Care Provider Reason for Visit Reason Comments GI Problem New pt. referred by Vanesa Tamayo for diarrhea/constipation, GERD & epigastric pain. Refer to Department Only (Routine) Status Reason Specialty Diagnoses / Referred By Referred To Procedures Contact Contact Pending Review Gastroenterology Diagnoses Irritable bowel syndrome with both constipation and diarrhea Marianna Tamayo NP Gastroenterolo [address] [place], [place] [address] [address] [place], [place] Phone: [phone] Phone: Encounter Details Date Type Department Care Team Description 06/24/2019 Office Visit Jasper Thomasonparesis (Primary Dx); Gastroenterology/Hep Lisa Perez NP Irritable bowel syndrome with both constipation and diarrhea; atology [address] [facility] History of gastric polyp; [address] [place] [address] [place] [address] [phone] Allergies Active Allergy Reactions Severity Noted Date Comments Ambien Swelling 06/01/2019 Bactrim Ds Hives Medium 06/01/2019 Duloxetine Hcl Other 06/01/2019 Worsening anxiety and panic documented as of this encounter (statuses as of 06/24/2019) Medications Medication Sig Dispensed Refills Start Date End Date Status Mirtazapine 45 MG Take by 0 Active Oral Tab mouth. ondansetron (ZOFRAN Take 4 mg 0 Active ODT) 4 MG Oral by mouth TABLET DISPERSIBLE ONCE NEEDED. ranitidine (ZANTAC) Take 300 mg 0 Active 300 MG Oral Tab by mouth DAILY. ALBUTEROL SULFATE ER Take by 0 Active PO mouth. Ascorbic Acid Take by 0 Active (VITAMIN C) 100 MG mouth. Oral Chew Tab BIOTIN PO Take by 0 Active mouth. Lansoprazole 15 MG Take 15 mg 60 Cap 3 06/24/2019 Active Oral CAPSULE DELAYED by mouth RELEASE TWICE DAILY. albendazole Take 200 mg 0 Discontinued (ALBENZA) 200 MG by mouth 9 Oral Tab TWICE DAILY. predniSONE Take 20 mg 0 Discontinued (DELTASONE) 20 MG by mouth 9 Oral Tab DAILY. pantoprazole Take 40 mg 0 Discontinued (PROTONIX) 40 MG by mouth 9 (Alternative Oral Tab EC DAILY. Therapy) clarithromycin Take 1 Tab 20 Tab 0 06/01/2019 Discontinued (BIAXIN) 500 MG Oral by mouth 9 TabIndications: TWICE Acute bronchitis, DAILY. unspecified organism documented as of this encounter (statuses as of 06/24/2019) Active Problems No known active problemsdocumented as [...] Sign Reading Time Taken Comments Blood Pressure 98/62 06/24/2019 8:27 AM EDT Pulse 66 06/24/2019 8:27 AM EDT Temperature 36.3 06/24/2019 8:27 AM EDT C (97.4 F) Respiratory Rate - - Oxygen Saturation - - Inhaled Oxygen Concentration - - Weight 44.2 kg (97 lb 8 oz) 06/24/2019 8:27 AM EDT Height 154.9 cm (5' 1") 06/24/2019 8:27 AM EDT Body Mass Index 18.42 06/24/2019 8:27 AM EDT documented in this encounter Patient Instructions Patient InstructionsLisa Allen NP - 06/24/2019 8:00 AM EDT1. Will need old upper endoscopy and colonoscopy reports 2. Will switch to Lansoprazole as directed, stop the Pantoprazole 3. Continue dietary modification as stated below 4. Follow up in 1 month Thank you for choosing the [facility] for your needs today! -Lisa Allen N.P. , Please call if you need to cancel or change your appt. time. Thank you for choosing [facility] for your health care needs, and for consulting with [facility] today. You may receive a survey following [...] only take a few minutes to complete. Gastroparesis WHAT YOU NEED TO KNOW: Gastroparesis is a condition that causes food to move more slowly than normal from the stomach to the intestines. Gastroparesis is not caused by blockage. Often, the cause may not be known. It may be caused by damage to a nerve that controls muscles used to move food to your small intestines. DISCHARGE INSTRUCTIONS: You or someone else should call 911 if: Your heart is beating faster and you are breathing faster than usual. You cannot be woken up. Return to the emergency department if: You are confused or have trouble thinking clearly. You are dizzy or very drowsy. Contact your healthcare provider if: You are urinating less than usual. Your symptoms return or become worse. The color of your urine is dark yellow. You have questions or concerns about your condition or care. Medicines: Medicines may be given to control your nausea and vomiting. You may also receive medicines that help food move through your stomach at a more normal rate. Take your medicine as directed. Call your healthcare provider if you think your medicine is not helping or if you have side effects. Tell him if you are allergic to any medicine. Keep a list of the medicines, vitamins, and herbs you take. Include the amounts, and when and why you take them. Bring the list or the pill bottles to follow-up visits. Carry your medicine list with you in case of an emergency. Follow up with your healthcare provider as directed: You may need tests to check if treatment is working. You may need to see a dietitian for help with a nutrition plan. Write down your questions so you remember to ask them during your visits. Self-care: Your healthcare provider may suggest any of the following: Change your eating habits. Take small bites of food to make it easier for your body to digest.You may need to eat several small meals low in fiber and fat throughout the day. Ask your dietitian for help with planning your meals. Do not eat raw fruits, vegetables, or whole grains. These can cause you to have undigested food in your stomach. The undigested food can form a blockage that can become life-threatening. Drink liquids as directed. Liquids will prevent dehydration caused by vomiting. Slowly drink small amounts of liquids at a time. Ask your healthcare provider how much liquid to drink each day, and which liquids are best for you. You may also need to drink an oral rehydration solution (ORS). An ORS has the right amounts of sugar, salt, and minerals in water to replace body fluids. Do not lie down for 2 hours after your meals. Walking and sitting after meals help with digestion. Control your blood sugar levels if you have diabetes. High blood sugar levels may make your symptoms worse. Ask your healthcare provider how to control your blood sugar levels. 2016 [employer]. Information is for End User's use only and may not be sold, redistributed or otherwise used for commercial purposes. All illustrations and images included in CareNotes are the copyrighted property of [employer] or [employer]. The above information is an first aid attendant only. It is not intended as medical advice for individual conditions or treatments. Talk to your doctor, nurse or pharmacist before following any medical regimen to see if it is safe and effective for you. documented in this encounter Progress Notes Lisa Allen NP - 06/24/2019 8:00 AM EDT PATIENT: Claudia Benson : 1980 DATE OF SERVICE: 06/24/2019 REFERRING PRACTITIONER: Marj Tamayo PRIMARY CARE PROVIDER: Marj Tamayo CHIEF COMPLAINT: Chief Complaint Patient presents with GI Problem New pt. referred by Vanesa Tamayo for diarrhea/constipation, GERD & epigastric pain. Subjective HISTORY OF PRESENT ILLNESS: Claudia Benson is a 39-y.o. female who presents for a consultation. She reports left sided abdominal pain, diarrhea/constipation cycles, and upper abdominal pain related to known gastroparesis. She was formerly followed by GI in [place], has been on acid reduction therapy for several years, uses Miralax to keep her stooling pattern regular and twice monthly uses an antinausea medication. Defecation occurs 1 time(s) per day and is described as being loose. Symptoms have been gradually worsening recently, she feels her Pantoprazole is no longer working. Psychosocial factors: anxiety, depression. The patient denies arthralgias, chills, fever, frequency, headache, hematochezia , hematemesis, hematuria, malnutrition, melena, myalgias, sweats and weight loss. Past Medical History: Diagnosis Date Bipolar 1 disorder (HCC) not seeing Depression BiPolar Gastroparesis GERD (gastroesophageal reflux disease) Past Surgical History: Procedure Laterality Date LAPAROSCOPIC TUBAL LIGATION 2009 History reviewed. No pertinent family history. Current Outpatient Medications Medication Sig ALBUTEROL SULFATE ER PO Take by mouth. Ascorbic Acid (VITAMIN C) 100 MG Oral Chew Tab Take by mouth. BIOTIN PO Take by mouth. Lansoprazole 15 MG Oral CAPSULE DELAYED RELEASE Take 15 mg by mouth TWICE DAILY. Mirtazapine 45 MG Oral Tab Take by mouth. ondansetron (ZOFRAN ODT) 4 MG Oral TABLET DISPERSIBLE Take 4 mg by mouth ONCE NEEDED. ranitidine (ZANTAC) 300 MG Oral Tab Take 300 mg by mouth DAILY. No current facility-administered medications for this visit. [...] file Gets together: Not on file Attends yazidi service: Not on file Active member of [...] present illness/subjective. Objective PHYSICAL EXAMINATION: VITALS: BP 98/62 | Pulse 66 | Temp 97.4 F (36.3 C) | Ht 5' 1" ( 1.549 m) | Wt 97 lb 8 oz(44.2 kg) | BMI 18.42 kg/m Body mass index is 18.42 kg/m. GENERAL: alert, oriented, no acute distress. HEENT: No scleral icterus, MMM Psych: Affect normal Neck: no lymphadenopathy LUNGS: clear to auscultation bilaterally. HEART: regular rhythm, no murmurs, no gallops, no rubs. ABDOMEN: general exam: soft, LLQ and epigastric-tenderness, non-distended, without masses or organomegaly, normal active bowel sounds, Carballo's sign negative. Extrmities: no edema Skin: clear Neuro: gait normal, a&o x 3 RECTAL: exam deferred. Plan IMPRESSION/PLAN: ICD-9-CM ICD-10-CM 1. Gastroparesis 536.3 K31.84 2. Irritable bowel syndrome with both constipation and diarrhea 564.1 K58.2 REFER TO GI 3. History of gastric polyp V12.79 Z87.19 4. History of colonic polyps V12.72 Z86.010 Patient Instructions 1. Will need old upper endoscopy and colonoscopy reports 2. Will switch to Lansoprazole as directed, stop the Pantoprazole 3. Continue dietary modification as stated below 4. Follow up in 1 month Thank you for choosing the [facility] for your needs today! -Lisa Allen N.P. , Please call if you need to cancel or change your appt. time. Thank you for choosing [facility] for your health care needs, and for consulting with [facility] today. You may receive a survey following [...] only take a few minutes to complete. Gastroparesis WHAT YOU NEED TO KNOW: Gastroparesis is a condition that causes food to move more slowly than normal from the stomach to the intestines. Gastroparesis is not caused by blockage. Often, the cause may not be known. It may be caused by damage to a nerve that controls muscles used to move food to your small intestines. DISCHARGE INSTRUCTIONS: You or someone else should call 911 if: Your heart is beating faster and you are breathing faster than usual. You cannot be woken up. Return to the emergency department if: You are confused or have trouble thinking clearly. You are dizzy or very drowsy. Contact your healthcare provider if: You are urinating less than usual. Your symptoms return or become worse. The color of your urine is dark yellow. You have questions or concerns about your condition or care. Medicines: Medicines may be given to control your nausea and vomiting. You may also receive medicines that help food move through your stomach at a more normal rate. Take your medicine as directed. Call your healthcare provider if you think your medicine is not helping or if you have side effects. Tell him if you are allergic to any medicine. Keep a list of the medicines, vitamins, and herbs you take. Include the amounts, and when and why you take them. Bring the list or the pill bottles to follow-up visits. Carry your medicine list with you in case of an emergency. Follow up with your healthcare provider as directed: You may need tests to check if treatment is working. You may need to see a dietitian for help with a nutrition plan. Write down your questions so you remember to ask them during your visits. Self-care: Your healthcare provider may suggest any of the following: Change your eating habits. Take small bites of food to make it easier for your body to digest.You may need to eat several small meals low in fiber and fat throughout the day. Ask your dietitian for help with planning your meals. Do not eat raw fruits, vegetables, or whole grains. These can cause you to have undigested food in your stomach. The undigested food can form a blockage that can become life-threatening. Drink liquids as directed. Liquids will prevent dehydration caused by vomiting. Slowly drink small amounts of liquids at a time. Ask your healthcare provider how much liquid to drink each day, and which liquids are best for you. You may also need to drink an oral rehydration solution (ORS). An ORS has the right amounts of sugar, salt, and minerals in water to replace body fluids. Do not lie down for 2 hours after your meals. Walking and sitting after meals help with digestion. Control your blood sugar levels if you have diabetes. High blood sugar levels may make your symptoms worse. Ask your healthcare provider how to control your blood sugar levels. 2016 [employer]. Information is for End User's use only and may not be sold, redistributed or otherwise used for commercial purposes. All illustrations and images included in CareNotes are the copyrighted property of [employer] or [employer]. The above information is an first aid attendant only. It is not intended as medical advice for individual conditions or treatments. Talk to your doctor, nurse or pharmacist before following any medical regimen to see if it is safe and effective for you. Author: Lisa Allen NP 06/24/2019 08:48 documented in this encounter Plan of Treatment Date Type Specialty Care Team Description 06/25/2019 Office Visit Physical Therapy Zehra Huang, PT [address] [place] [address] 07/02/2019 Nurse/Clinical Support Internal Medicine 07/08/2019 Office Visit Family Practice Marj Tamayo NP [address] [place] [address] [phone] 07/08/2019 Ancillary Procedure Radiology 07/27/2019 Office Visit Gastroenterology Lisa Allen, [address] [place] [address] [phone] Health Maintenance Due Date Last Done Comments [...] filedocumented in this encounter Visit Diagnoses Diagnosis Gastroparesis - Primary Irritable bowel syndrome with both constipation and diarrhea History of gastric polyp History of colonic polyps Personal history of colonic polyps documented in this encounter Insurance Payer Benefit Plan / Subscriber ID Effective Dates Phone Address Type Group [place] xxxxxxxx 2019-Present [place] documented as of this encounter
--- OUTSIDE RECORDS SUMMARY | 2019-08-01 11:51 | XMS REPORT | Summary of Care ---
:1980 Author Organization [facility] Address [address] [address] Care Team Providers Name Role Phone Marj Tamayo Primary Care Provider Reason for Visit Reason Comments Follow Up pt presents in office for 1 mon f/u would also like to discuss depression medication Encounter Details Date Type Department Care Team Description 07/08/2019 Office Visit [facility], Tobacco dependence (Primary Dx); Fatuma Mcmahan NP Bipolar 1 disorder (HCC); [address] [facility] Numbness and tingling in right hand; [place] [address] [place] [address] Spinal stenosis of cervicothoracic region [phone] Allergies Active Allergy Reactions Severity Noted Date Comments Ambien Swelling 06/01/2019 Bactrim Ds Hives Medium 06/01/2019 Duloxetine Hcl Other 06/01/2019 Worsening anxiety and panic documented as of this encounter (statuses as of 07/09/2019) Medications Medication Sig Dispensed Refills Start Date End Date Status ondansetron (ZOFRAN Take 4 mg by 0 Active ODT) 4 MG Oral mouth ONCE TABLET DISPERSIBLE NEEDED. ranitidine (ZANTAC) Take 300 mg 0 [...] CAPSULE DELAYED by mouth RELEASE TWICE DAILY. Mirtazapine 45 MG Take 1 Tab 30 Tab 3 07/08/2019 Active Oral TabIndications: by mouth Bipolar 1 disorder DAILY. ([facility]) Varenicline Tartrate Take 1 1 Kit 0 07/08/2019 Active 0.5 MG X 11 & 1 MG X Package by 42 Oral mouth MiscIndications: DIRECTED. Tobacco dependence gabapentin Take 1 Cap 60 Cap 1 07/08/2019 Active (NEURONTIN) 100 MG by mouth Oral CapIndications: TWICE DAILY. Numbness and tingling in right hand diclofenac 2 g by 1 Tube 1 07/08/2019 Active (VOLTAREN) 1 % Topical Transdermal route FOUR GelIndications: TIMES DAILY. Spinal stenosis of cervicothoracic region Mirtazapine 45 MG Take by 0 Discontinued Oral Tab mouth. 9 (Reorder) documented as of this encounter (statuses as of 07/09/2019) Active Problems Problem Noted Date GERD (gastroesophageal reflux disease) Gastroparesis Depression Bipolar 1 disorder Overview: not seeing MH documented as of this encounter (statuses as of 07/09/2019) Social History Tobacco Use Types Packs/Day Years [...] Sign Reading Time Taken Comments Blood Pressure 110/62 07/08/2019 8:09 AM EDT Pulse 77 07/08/2019 8:09 AM EDT Temperature - - Respiratory Rate - - Oxygen Saturation 98% 07/08/2019 8:09 AM EDT Inhaled Oxygen Concentration - - Weight 43.8 kg (96 lb 9.6 oz) 07/08/2019 8:09 AM EDT Height 154.9 cm (5' 1") 07/08/2019 8:09 AM EDT Body Mass Index 18.25 07/08/2019 8:09 AM EDT documented in this encounter Patient Instructions Patient InstructionsMarj Tamayo NP - 07/08/2019 8:00 AM EDT CHANTIX- Days 1 to 3: 0.5 mg once daily. Days 4 to 7: 0.5 mg twice daily. Then 1 mg twice daily. Gabapentin - 100 mg (one tablet) twice daily - start with one tablet at night and see how you do fora few days before going to twice daily. It might make you sleepy. Follow up in one month please. Send refill request for the continuing pack of chantix about one week before you run out. Other things to help - try to avoid being around people who are smoking, avoid activities where you normally smoke (or change things up - if you always smoke while drinking coffee, change where you drink your coffee for example). Patient Education Quitting Smoking The Basics Written by the doctors and editors at [facility] What are the benefits of quitting smoking?Quitting smoking can lower your chances of getting or dying from heart disease, lung disease, kidney failure, infection, or cancer. It can also lower your chances of getting osteoporosis, a condition that makes your bones weak. Plus, quitting smoking can help your skin look younger and reduce the chances that you will have problems with sex. Quitting smoking will improve your health no matter how old you are, and no matter how long or how much you have smoked. What should I do if I want to quit smoking?The letters in the word "START" can help you remember the steps to take: S = Set a quit date. T = Tell family, friends, and the people around you that you plan to quit. A = Anticipate or plan ahead for the tough times you'll face while quitting. R = Remove cigarettes and other tobacco products from your home, car, and work. T = Talk to your doctor about getting help to quit. How can my doctor or nurse help?Your doctor or nurse can give you advice on the best way to quit. He or she can also put you in touch with counselors or other people you can call for support. Plus, your doctor or nurse can give you medicines to: Reduce your craving for cigarettes Reduce the unpleasant symptoms that happen when you stop smoking (called "withdrawal symptoms"). You can also get help from a free phone line (6-444-JFRJ-NOW) or go online to www.smokefree.gov. What are the symptoms of withdrawal?The symptoms include: Trouble sleeping Being irritable, anxious or restless Getting frustrated or angry Having trouble thinking clearly Some people who stop smoking become temporarily depressed. Some people need treatment for depression, such as counseling or antidepressant medicines. Depressed people might: No longer enjoy or care about doing the things they used to like to do Feel sad, down, hopeless, nervous, or cranky most of the day, almost every day Lose or gain weight Sleep too much or too little Feel tired or like they have no energy Feel guilty or like they are worth nothing Forget things or feel confused Move and speak more slowly than usual Act restless or have trouble staying still Think about or suicide If you think you might be depressed, see your doctor or nurse. Only someone trained in mental healthcan tell for sure if you are depressed. If you ever feel like you might hurt yourself, go straight to the nearest emergency department. Or you can call for an ambulance (in the [place] and [place], dial 9-1-1) or call your doctor or nurse right away and tell them it is an emergency. You can also reach the National Suicide Prevention Lifeline at 1- 773.626.5689 or www.suicidepreventionlifeline.org. How do medicines help you stop smoking?Different medicines work in different ways: Nicotinereplacement therapy eases withdrawal and reduces your body's craving for nicotine, the main drug found in cigarettes. There are different forms of nicotine replacement, including skin patches, lozenges, gum, nasal sprays, and "puffers" or inhalers. Many can be bought without a prescription, while others might require one. Bupropion is a prescription medicine that reduces your desire to smoke. This medicine is sold under the brand names Zyban and Wellbutrin. It is also available in a generic version, which is cheaper than brand name medicines. Varenicline (brand names: Chantix, Champix) is a prescription medicine that reduces withdrawal symptoms and cigarette cravings. If you think you'd like to take varenicline and you have a history of depression, anxiety, or heart disease, discuss this with your doctor or nurse before taking the medicine. Varenicline can also increase the effects of alcohol in some people. It's a good idea to limitdrinking while you're taking it, at least until you know how it affects you. How does counseling work?Counseling can happen during formal office visits or just over the phone. A counselor can help you: Figure out what triggers your smoking and what to do instead Overcome cravings Figure out what went wrong when you tried to quit before What works best?Studies show that people have the best luck at quitting if they take medicines to help them quit and work with a counselor. It might also be helpful to combine nicotine replacement with one of the prescription medicines that help people quit. In some cases, it might even make sense to take bupropion and varenicline together. What about e-cigarettes?Sometimes people wonder if using electronic cigarettes, or "e-cigarettes," might help them quit smoking. Using e- cigarettes is also called "vaping." Doctors do notrecommend e-cigarettes in place of medicines and counseling. That's because e-cigarettes still contain nicotine as well as other substances that might be harmful. It's not clear how they can affect a person's health in the assisted. Will I gain weight if I quit?Yes, you might gain a few pounds. But quitting smoking will have a much more positive effect on your health than weighing a few pounds more. Plus, you can help prevent some weight gain by being more active and eating less. Taking the medicine bupropion might help control weight gain. What else can I do to improve my chances of quitting?You can: Start exercising. Stay away from smokers and places that you associate with smoking. If people close to you smoke, ask them to quit with you. Keep gum, hard candy, or something to put in your mouth handy. If you get a craving for a cigarette, try one of these instead. Don't give up, even if you start smoking again. It takes most people a few tries before they succeed. What if I am and I smoke?If you are , it's really important for the health of your baby that you quit. Ask your doctor what options you have, and what is safest for your baby. All topics are updated as new evidence becomes available and our peer review process is complete. This topic retrieved from [employer] on: Aug 03, 2018. Topic 58368 Version 17.0 Release: 26.5.4 - C26.311 nap- [employer]. and/or its affiliates.All rights reserved. Consumer Information Use and Disclaimer This information is not specific medical advice and does not replace information you receive from your health care provider. This is only a brief summary of general information. It does NOT include allinformation about conditions, illnesses, injuries, tests, procedures, treatments, therapies, discharge instructions or life-style choices that may apply to you. You must talk with your health care provider for complete information about your health and treatment options. This information should not beused to decide whether or not to accept your health care provider's advice, instructions or recommendations. Only your health care provider has the knowledge and training to provide advice that is right for you.The use of [employer] content is governed by the [employer] Terms of Use. 2018 [employer]. All rights reserved. Copyright 2018[employer]. and/or its affiliates.All rights reserved. Patient Education Varenicline (lane EN i kleen) Brand Names: [place] Chantix; Chantix Continuing Month [place]; Chantix Starting Month Brand Names: [place] Champix What is this drug used for? It is used to help you stop smoking. What do I need to tell my doctor BEFORE I take this drug? If you have an allergy to varenicline or any other part of this drug. If you are allergic to any drugs like this one, any other drugs, foods, or other substances. Tell your doctor about the allergy and what signs you had, like rash; hives; itching; shortness of breath; wheezing; cough; swelling of face, lips, tongue, or throat; or any other signs. This drug may interact with other drugs or health problems. Tell your doctor and pharmacist about all of your drugs (prescription or OTC, natural products, vitamins) and health problems. You must check to make sure that it is safe for you to take this drug withall of your drugs and health problems. Do not start, stop, or change the dose of any drug without checking with your doctor. What are some things I need to know or do while I take this drug? Tell all of your health care providers that you take this drug. This includes your doctors, nurses, pharmacists, and dentists. Avoid driving and doing other tasks or actions that call for you to be alert until you see how this drug affects you. Accidents like car accidents have happened in people taking this drug. Talk with your doctor. Do not take this drug for longer than you were told by your doctor. Talk with your doctor before you drink alcohol. When you stop smoking, other drugs may be affected. Talk with your doctor. Talk with your doctor if you have seizures or have ever had seizures. New or worse mental, mood, or behavior problems have happened with this drug. These problems include thoughts of suicide or killing someone else, depression, forceful actions, fury, anxiety, and anger. These problems have happened in people with and without a history of mental or mood problems. Watch people who take this drug closely. If you think you have any of these problems, call your doctorright away. Call your doctor right away if you have any other signs like nervousness, restlessness, grouchiness, panic attacks, or any new or worse changes in mood or actions. You may have signs of nicotine withdrawal when you try to quit smoking even when using drugs like this one to help you quit smoking. There are many signs of nicotine withdrawal. Rarely depression and suicidal thoughts have happened in people trying to quit smoking. Talk with your doctor. A very bad reaction called angioedema has happened with this drug. Sometimes, this may be life-threatening. Signs may include swelling of the hands , face, lips, eyes, tongue, or throat; trouble breathing; trouble swallowing; or unusual hoarseness. Get medical help right away if you have any of these signs. Tell your doctor if you are or plan on getting . You will need to talk about the benefits and risks of using this drug while you are . Tell your doctor if you are breast-feeding. You will need to talk about any risks to your baby. What are some side effects that I need to call my doctor about right away? WARNING/CAUTION: Even though it may be rare, some people may have very bad and sometimes deadly sideeffects when taking a drug. Tell your doctor or get medical help right away if you have any of the following signs or symptoms that may be related to a very bad side effect: Signs of an allergic reaction, like rash; hives; itching; red, swollen, blistered, or peeling skin with or without fever; wheezing; tightness in the chest or throat; trouble breathing, swallowing,or talking; unusual hoarseness; or swelling of the mouth, face, lips, tongue, or throat. Shortness of breath. Feeling confused. Hallucinations (seeing or hearing things that are not there). Very upset stomach or throwing up. Seizures. A very bad skin reaction (Darden-Son syndrome/toxic epidermal necrolysis) may happen. It can cause very bad health problems that may not go away, and sometimes . Get medical help right away if you have signs like red, swollen, blistered, or peeling skin (with or without fever); red or irritated eyes; or sores in your mouth, throat, nose, or eyes. New or worse heart and blood vessel problems have happened with this drug. This includes heart attack and stroke. Most of the time, this happened in people who already had heart or blood vessel problems. Call your doctor right away if you have signs of heart attack like chest pain that may spreadto the arms, neck, jaw, back, or stomach; sweating that is not normal; or feeling sick or throwing up. Call your doctor right away if you have signs of stroke like weakness on 1 side of the body; eyesight, speech, or balance problems; feeling confused; drooping on 1 side of the face; or very bad headache. Sleepwalking has happened with this drug. Sometimes, this can lead to harm to you or others. Call your doctor right away if you start to sleepwalk. What are some other side effects of this drug? All drugs may cause side effects. However, many people have no side effects or only have minor side effects. Call your doctor or get medical help if any of these side effects or any other side effects bother you or do not go away: Upset stomach or throwing up. Strange or odd dreams. Gas. Not able to sleep. Headache. Constipation. Dry mouth. Belly pain. Change in taste. Feeling tired or weak. Signs of a common cold. These are not all of the side effects that may occur. If you have questions about side effects, callyour doctor. Call your doctor for medical advice about side effects. You may report side effects to your national health agency. How is this drug best taken? Use this drug as ordered by your doctor. Read all information given to you. Follow all instructions closely. Get counseling to help you quit smoking. Take after eating with a full glass of water. There are different ways that you can use this drug to help you quit smoking. Talk with your doctor about when to start treatment with this drug and when to stop smoking. What do I do if I miss a dose? Take a missed dose as soon as you think about it. If it is close to the time for your next dose, skip the missed dose and go back to your normal time. Do not take 2 doses at the same time or extra doses. How do I store and/or throw out this drug? Store at room temperature. Store in a dry place. Do not store in a bathroom. Keep all drugs in a safe place. Keep all drugs out of the reach of children and pets. Throw away unused or drugs. Do not flush down a toilet or pour down a drain unless you are told to do so. Check with your pharmacist if you have questions about the best way to throw out drugs. There may be drug take- back programs in your area. General drug facts If your symptoms or health problems do not get better or if they become worse, call your doctor. Do not share your drugs with others and do not take anyone else's drugs. Keep a list of all your drugs (prescription, natural products, vitamins, OTC) with you. Give this list to your doctor. Talk with the doctor before starting any new drug, including prescription or OTC, natural products, or vitamins. Some drugs may have another patient information leaflet. If you have any questions about this drug, please talk with your doctor, nurse, pharmacist, or other health care provider. If you think there has been an overdose, call your poison control center or get medical care right away. Be ready to tell or show what was taken, how much, and when it happened. Consumer Information Use and Disclaimer This information should not be used to decide whether or not to take this medicine or any other medicine. Only the healthcare provider has the knowledge and training to decide which medicines are rightfor a specific patient. This information does not endorse any medicine as safe, effective, or approved for treating any patient or health condition. This is only a brief summary of general information about this medicine. It does NOT include all information about the possible uses, directions, warnings, precautions, interactions, adverse effects, or risks that may apply to this medicine. This information is not specific medical advice and does not replace information you receive from the healthcare provider. You must talk with the healthcare provider for complete information about the risks and benefits of using this medicine. Last Reviewed Date 2018-02-19 Copyright 2018 [employer] and its affiliates and/ or licensors. All rights reserved. documented in this encounter Progress Notes Marj Tamayo NP - 07/08/2019 8:00 AM EDT PATIENT: Claudia Benson : 1980 DATE OF SERVICE: 07/08/2019 CHIEF COMPLAINT: Chief Complaint Patient presents with Follow Up pt presents in office for 1 mon f/u would also like to discuss depression medication Subjective HISTORY OF PRESENT ILLNESS: Claudia Benson is a 39-y.o. female. HPI Has cut down from 1.5 ppd to 10-15 cigarettes per day. Would like to discuss medication options to quit smoking. She has tried patches and gum in the past with no success, She went to physical therapy and told she has spinal stenosis. Right arm numbness and pain is getting a bit better but still having some pain/tingling and shaking when she opens her hand. She went to GI, switched to lansoprazole which is working better for her. She still feels she has diarrhea and loose stools, when she eats it goes right through her. Has f/u with [facility] on 07/27, might go back sooner. She ran out of mirtazapine, needs a refill, depression worse off of it and losing weight. She continues to have chronic cough, gets shortness of breath with prolonged exertion. PFT was normal last week. Past Medical History: Diagnosis Date Bipolar 1 disorder (HCC) not seeing Depression BiPolar Gastroparesis GERD (gastroesophageal reflux disease) Family History Problem Relation Age of Onset No Known Problems Maternal Aunt Current Outpatient Medications Medication Sig ALBUTEROL SULFATE ER PO Take by mouth. Ascorbic Acid (VITAMIN C) 100 MG Oral Chew Tab Take by mouth. BIOTIN PO Take by mouth. diclofenac (VOLTAREN) 1 % Transdermal Gel 2 g by Topical route FOUR TIMES DAILY. gabapentin (NEURONTIN) 100 MG Oral Cap Take 1 Cap by mouth TWICE DAILY. Lansoprazole 15 MG Oral CAPSULE DELAYED RELEASE Take 15 mg by mouth TWICE DAILY. Mirtazapine 45 MG Oral Tab Take 1 Tab by mouth DAILY. ondansetron (ZOFRAN ODT) 4 MG Oral TABLET DISPERSIBLE Take 4 mg by mouth ONCE NEEDED. ranitidine (ZANTAC) 300 MG Oral Tab Take 300 mg by mouth DAILY. Varenicline Tartrate 0.5 MG X 11 & [...] file Gets together: Not on file Attends episcopal service: Not on file Active member of [...] Narrative Not on file REVIEW OF SYSTEMS: Review of Systems Constitutional: Negative for chills, fever and malaise/fatigue. HENT: Negative for congestion, sinus pain and sore throat. Respiratory: Positive for cough and shortness of breath. Cardiovascular: Negative for chest pain and palpitations. Neurological: Negative for dizziness and headaches. Psychiatric/Behavioral: Negative for depression, substance abuse and suicidal ideas. The patient is not nervous/anxious. Objective PHYSICAL EXAM: VITALS: BP 110/62 (BP Location: Left arm, Patient Position: Sitting) | Pulse 77 | Ht 5' 1" (1.549m) | Wt 96 lb 9.6 oz (43.8 kg) | LMP 06/28/2019 | SpO2 98% | BMI 18.25 kg/m Body mass indexis 18.25 kg/m. Physical Exam Vitals signs and nursing note reviewed. Constitutional: General: She is not in acute distress. Appearance: Normal appearance. She is well-developed. Cardiovascular: Rate and Rhythm: Normal rate and regular rhythm. Heart sounds: Normal heart sounds. No murmur. No friction rub. No gallop. Pulmonary: Effort: Pulmonary effort is normal. No respiratory distress. Breath sounds: Normal breath sounds. Neurological: Mental Status: She is alert. Psychiatric: Mood and Affect: Mood and affect normal. Speech: Speech normal. Behavior: Behavior normal. Behavior is cooperative. ASSESSMENT / IMPRESSION: ICD-9-CM ICD-10-CM 1. Tobacco dependence 305.1 F17.200 Varenicline Tartrate 0.5 MG X 11 & 1 MG X 42 Oral Misc 2. Bipolar 1 disorder (HCC) 296.7 F31.9 Mirtazapine 45 MG Oral Tab 3. Numbness and tingling in right hand 782.0 R20.0 gabapentin (NEURONTIN) 100 MG Oral Cap R20.2 4. Spinal stenosis of cervicothoracic region 723.0 M48.03 diclofenac (VOLTAREN) 1 % Transdermal Gel Plan 1. Bipolar 1 disorder (HCC) Refill sent - Mirtazapine 45 MG Oral Tab; Take 1 Tab by mouth DAILY. Dispense: 30 Tab; Refill: 3 2. Tobacco dependence Starter pack of chantix. Will let me know one week before she runs out so I can send in the continuing pack. Discussed side effects and warning signs. Discussed other smoking cessation techniques. - Varenicline Tartrate 0.5 MG X 11 & 1 MG X 42 Oral Misc; Take 1 Package by mouth DIRECTED. Dispense: 1 Kit; Refill: 0 Nicotine addiction. We discussed the importance of smoking cessation as well as different ways to approach it. The patient is ready to set action plan and implement, chantix and lifestyle changes. A total of 10 minutes was spent with the patient today talking about smoking cessation. 3. Numbness and tingling in right hand She would like to try gabapentin - evidence not strong for this but will trial it and see how she isdoing. - gabapentin (NEURONTIN) 100 MG Oral Cap; Take 1 Cap by mouth TWICE DAILY. Dispense: 60 Cap; Refill: 1 4. Spinal stenosis of cervicothoracic region She can not take oral nsaids - will try voltaren. - diclofenac (VOLTAREN) 1 % Transdermal Gel; 2 g by Topical route FOUR TIMES DAILY. Dispense: 1 Tube; Refill: 1 CHANTIX- Days 1 to 3: 0.5 mg once daily. Days 4 to 7: 0.5 mg twice daily. Then 1 mg twice daily. Gabapentin - 100 mg (one tablet) twice daily - start with one tablet at night and see how you do fora few days before going to twice daily. It might make you sleepy. Follow up in one month please. Send refill request for the continuing pack of chantix about one week before you run out. Other things to help - try to avoid being around people who are smoking, avoid activities where you normally smoke (or change things up - if you always smoke while drinking coffee, change where you drink your coffee for example). Author: Marj Tamayo NP 07/09/2019 09:34 documented in this encounter Plan of Treatment Date Type Specialty Care Team Description 07/13/2019 Office Visit Physical Therapy Zehra Huang, PT [address] [place] [address] [phone] 07/15/2019 Office Visit Physical Therapy Zehra Huang, PT [address] [place] [address] [phone] 07/19/2019 Ancillary Procedure Radiology 07/19/2019 Ancillary Procedure Radiology 07/27/2019 Office Visit Gastroenterology Lisa Allen NP [address] [address] [phone] 08/03/2019 Office Visit Family Practice Marj Tamayo NP [address] [place] [address] [phone] Health Maintenance Due Date Last Done Comments MEDICARE ANNUAL WELLNESS VISIT 1980 PNEUMOCOCCAL 0-64 YRS (1 of - [...] Author Type Problems Progress Depression Depression No Roni screen (PHQ-9) Marj, total score < 5 MASTER BAKER Note: This is an individualized treatment (depression) [...] depression. Take all prescribed medications as Self-management Marj Flores NP directed Note: This is an individualized [...] ongoing basis. documented as of this encounter Procedures Procedure Name Priority Date/Time Associated Diagnosis Comments PAP SMEAR THINPREP AND Routine 05/26/2018 Results for this HPV (EXTERNAL) procedure are in the results section. documented in this encounter Results PAP SMEAR THINPREP AND HPV (EXTERNAL) (05/26/2018) HM PAP SMEAR negative [facility] PO[facility] Performing Organization Address City/State/Zipcode Phone Number [facility] [address] [place] [id number] documented in this encounter Visit Diagnoses Diagnosis Tobacco dependence - Primary Tobacco use disorder Bipolar 1 disorder (HCC) Bipolar I disorder, most recent episode (or current) unspecified Numbness and tingling in right hand Disturbance of skin sensation Spinal stenosis of cervicothoracic region Spinal stenosis in cervical region documented in this encounter Insurance Payer Benefit Plan / Subscriber ID Effective Dates Phone Address Type Group [employer] xxxxxxxxxxxx 2019-Prese [employer] MEDICARE MEDICARE BLUE nt ADVANTAGE PPO ([phone]) MEDICAID [facility] xxxxxxxx 2019-[place] t documented as of this encounter
[2019-08-01] MEDS ORDERED: NS 0.9% 1000 ML** 1,000 ML IV ONE (12:08)
[2019-08-01] MEDS ORDERED: Dexamethasone IV* 4 MG/ML 5 ML VIAL (20 MG) IVPB ONE (12:08)
[2019-08-01] MEDS ORDERED: Famotidine IV* 10 MG/ML 2 ML (20 mg) IV SLOW PU ONE (12:08)
[2019-08-01] MEDS ORDERED: diPHENhydraMINE IV* 50 MG/ML 1 ml VIAL (BENADRYL) SLOW PUSH ONE (12:08)
--- NOTE | 2019-08-01 12:09 | ED ---
Allergic Reaction/Systemic - HPI Summary HPI Summary: Patient is a 39 y/o F presenting to [facility] with complaints of diffuse, pruritic hives at her legs, face, back, and gluteal area. Sx were first noted this morning, 08/01/19, when she awoke from sleep. Patient states that she had a similar episode around ten months ago but describes this current episode as more severe. She reports some minimal tongue swelling sensation but denies SOB and throat swelling sensation. She states that she was started on Linzess for IBS two days ago, famotidine two weeks ago, and chantix four weeks ago. Patient reports no new food, perfumes, clothing, detergents, or any other changes to her routine. PMHx of GERD, "borderline gastritis", bipolar disorder, PTSD, anxiety, depression, and panic attacks. PSHx of ganglion cyst removal x2, tubal ligation, cholecystectomy reported. She states that she smokes x10 cigarettes daily, rarely consumes alcohol, and uses recreational marijuana. FMHx of breast cancer, pancreatic cancer, COPD, and emphysema is noted. On triage, pain is denied. Nothing is noted to aggravate/alleviate Sx. Home medications and allergies are reviewed. - History of Current Complaint Chief Complaint: EDRashSkinAbscess Time Seen by Provider: 08/01/19 11:49 Hx Obtained From: Patient Onset/Duration: Started hours ago, Still Present Timing: Constant, Lasting Hours Severity Currently: None Pain Intensity: 0 Pain Scale Used: 0-10 Numeric Location: Diffuse Character: Pruritus, Hives Aggravating Factor(s): Nothing Alleviating Factor(s): Nothing Associated Signs And Symptoms: Positive: Other: - some tongue swelling sensation is reported. Negative: Difficulty Breathing, Throat Tightening - Allergies/Home Medications Allergies/Adverse Reactions: Allergies Allergy/AdvReac Type Severity Reaction Status Date / Time duloxetine [From Cymbalta] Allergy Anxiety Verified 08/01/19 11:39 sulfamethoxazole Allergy Hives Verified 08/01/19 11:39 [From Bactrim] trimethoprim [From Bactrim] Allergy Hives Verified 08/01/19 11:39 zolpidem [From Ambien] Allergy Swelling Verified 08/01/19 11:39 Of Face,Lips,& Throat PMH/Surg Hx/FS Hx/Imm Hx GI History: Reports: Hx Gastroesophageal Reflux Disease Psychiatric History: Reports: Hx Anxiety, Hx Depression, Hx Panic Disorder, Hx Post Traumatic Stress Disorder, Hx Bipolar Disorder - Surgical History Surgery Procedure, Year, and Place: ganglion cyst removal x2, tubal ligation, cholecystectomy Infectious Disease History: No Infectious Disease History: Denies: Traveled Outside the [place] in Last 30 Days - Family History Known Family History: Positive: Respiratory Disease - COPD and emphysema , Other - breast cancer, pancreatic cancer - Social History Alcohol Use: Rare Substance Use Type: Reports: Marijuana Smoking Status (MU): Current Every Day Smoker Review of Systems ENT: Other - reports some tongue swelling sensation, no throat swelling sensation Respiratory: Other Negative: Shortness Of Breath Skin: Other - positive - diffuse hives All Other Systems Reviewed And Are Negative: Yes Physical Exam - Summary Physical Exam Summary: VITAL SIGNS: Reviewed. GENERAL: Patient is a well-developed and nourished female who is lying comfortable in the stretcher. Patient is not in any acute respiratory distress. HEAD AND FACE: No signs of trauma. No ecchymosis, hematomas or skull depressions. No sinus tenderness. No lip swelling. EYES: PERRLA, EOMI x 2, No injected conjunctiva, no nystagmus. EARS: Hearing grossly intact. Ear canals and tympanic membranes are within normal limits. MOUTH: Oropharynx within normal limits. There is no swelling of the tongue or throat closing sensation. NECK: Supple, trachea is midline, no adenopathy, no JVD, no carotid bruit, no c- spine tenderness, neck with full ROM. CHEST: Symmetric, no tenderness at palpation. LUNGS: Clear to auscultation bilaterally. No wheezing or crackles. CVS: Regular rate and rhythm, S1 and S2 present, no murmurs or gallops appreciated. ABDOMEN: Soft, non-tender. No signs of distention. No rebound, no guarding, and no masses palpated. Bowel sounds are normal. EXTREMITIES: FROM in all major joints, no edema, no cyanosis or clubbing. NEURO: Alert and oriented x 3. No acute neurological deficits. Speech is normal and follows commands. SKIN: Dry and warm. Diffuse hives involving the face, back, gluteal area and legs. Triage Information Reviewed: Yes Vital Signs On Initial Exam: Initial Vitals Temp Pulse Resp BP Pulse Ox 99.8 F 86 16 110/71 98 08/01/19 11:34 08/01/19 11:34 08/01/19 11:34 08/01/19 11:34 08/01/19 11:34 Vital Signs Reviewed: Yes Procedures - Sedation Patient Received Moderate/Deep Sedation with Procedure: No Diagnostics - Vital Signs Vital Signs Temp Pulse Resp BP Pulse Ox 08/01/19 11:34 99.8 F 86 16 110/71 98 - Laboratory Result Diagrams: 08/01/19 12:23 08/01/19 12:23 Lab Statement: Any lab studies that have been ordered have been reviewed, and results considered in the medical decision making process. Re-Evaluation - Re-Evaluation First Eval Re-Evaluation Time: 13:57 Change: Improved Comment: In the ED course the patient was given IV fluids, Benadryl, Decadron, and Pepcid. After these medications, the patients symptoms have significantly resolved. The patient was observed for couple hours and no recurrence of symptoms. The patient will be discharged home with a prescription for the same medications as above. Before discharge the patient is alert and oriented 3, she does not complain of any swelling of the tongue, swelling of the lips, or feeling that her throat is closing. No trismus noted. The patient is hemodynamically stable. Allergic Reaction Course/Dx - Course Assessment/Plan: This patient is a 39-year-old female who presents to the emergency department with a complaint of an allergic reaction. She really does not know the etiology of the symptoms. Blood test results without any significant abnormality except for WBCs of 14.5. In the ED course the patient was given IV fluids, Benadryl, Decadron, and Pepcid. After these medications, the patients symptoms have significantly resolved. The patient was observed for couple hours and no recurrence of symptoms. The patient will be discharged home with a prescription for the same medications as above. Before discharge the patient is alert and oriented 3, she does not complain of any swelling of the tongue, swelling of the lips, or feeling that her throat is closing. No trismus noted. The patient is hemodynamically stable. - Diagnoses Differential Diagnosis/HQI/PQRI: Positive: Airway Obstruction, Anaphylaxis, Angioedema, Erythema Multiforme, Local Allergic Reaction, Urticaria Provider Diagnoses: Allergic reaction Discharge ED - Sign-Out/Discharge Documenting (check all that apply): Patient Departure - discharge - Discharge Plan Condition: Stable Disposition: HOME Prescriptions: diPHENhydraMINE PO* [Benadryl PO 25 MG TAB*] 25 mg PO TID PRN #30 tab PRN Reason: Allergy Symptoms EPINEPHrine [Epipen 2-Juancho] 0.3 mg IM ONCE #1 inj predniSONE TAB* [Deltasone 20 MG TAB*] 40 mg PO DAILY #8 tab Patient Education Materials: General Allergic Reaction (ED) Referrals: Marj Tamayo B[employer] J[employer] MACHINE OPERATOR [Primary Care Provider] - 3 Days Additional Instructions: PLEASE RETURN TO ED FOR ANY NEW OR WORSENING SYMPTOMS. PLEASE FOLLOW UP WITH YOUR PRIMARY CARE PHYSICIAN WITHIN THREE DAYS. - Billing Disposition and Condition Condition: STABLE Disposition: Home - Attestation Statements Document Initiated by Ramiroibe: Yes Documenting Scribe: JIMENEZ LAL Provider For Whom Dong is Documenting (Include Credential): MARTINEZ OWEN MD Scribe Attestation: JIMENEZ Diallo, scribed for MARTINEZ OWEN MD on 08/02/19 at 1241. Scribe Documentation Reviewed: Yes Provider Attestation: The documentation as recorded by the JIMENEZ coto accurately reflects the service I personally performed and the decisions made by MARTINEZ arvizu MD Status of Scribe Document: Viewed
[2019-08-01 12:31] LABS: ABS Eosinophils 0.1 10^3/ul (0-0.6); ABS Lymphocytes 2.8 10^3/ul (1.0-4.8); ABS Monocytes 0.7 10^3/ul (0-0.8); ABS Neutrophils 10.8 10^3/ul (1.5-7.7); Eosinophil % 0.9 %; Hematocrit 41 % (35-47); Hemoglobin 13.9 g/dL (12.0-16.0); Lymphocyte % 19.3 %; Mean Corpuscular HGB Conc 34 g/dL (31-36); Mean Corpuscular Hemoglobin 31 pg (27-31); Mean Corpuscular Volume 92 fL (80-97); Mean Platelet Volume 9.4 fL (7.4-10.4); Platelet Count 212 10^3/uL (150-450); Red Blood Count 4.48 10^6 /uL (3.70-4.87); Red Cell Distribution Width 13 % (10-15); White Blood Count 14.5 10^3/uL (3.5-10.8)
[2019-08-01 12:41] LABS: Albumin 3.9 g/dL (3.2-5.2); Anion Gap 2 mmol/L (2-11); CO2 Carbon Dioxide 29 mmol/L (22-32); Calcium 9.2 mg/dL (8.6-10.3); Chloride 108 mmol/L (101-111); Potassium 3.5 mmol/L (3.5-5.0); Sodium 139 mmol/L (135-145)
[2019-08-01 12:47] LABS: ALT 15 U/L (7-52); AST 17 U/L (13-39); Albumin/Globulin Ratio 1.7 (1-3); Alkaline Phosphatase 47 U/L (34-104); BUN/Creatinine Ratio 17.3 (8-20); Blood Urea Nitrogen 13 mg/dL (6-24); C Reactive Protein < 1.00 mg/L (<8.01); EGFR African American 103.6 (>60); EGFR Non-African American 85.6 (>60); Globulin 2.3 g/dL (2-4); Glucose 91 mg/dL (70-100); Total Protein 6.2 g/dL (6.4-8.9)
[2019-08-01 12:53] LABS: HCG Pregnancy < 0.60 mIU/mL
[2019-08-01 14:23] VITALS: BP 109/55
== END 2019-08-01 14:17 | disposition home or self-care (01) ==
LOC: ED 11:32
DX: T78.40XA Allergy, unspecified, initial encounter (principal); X58.XXXA Exposure to other specified factors, initial encounter; Y92.9 Unspecified place or not applicable; K21.9 Gastro-esophageal reflux disease without esophagitis; F31.9 Bipolar disorder, unspecified; F43.10 Post-traumatic stress disorder, unspecified; F41.9 Anxiety disorder, unspecified; F17.210 Nicotine dependence, cigarettes, uncomplicated; Z98.51 Tubal ligation status; Z90.49 Acquired absence of other specified parts of digestive tract; Z88.1 Allergy status to other antibiotic agents; Z88.2 Allergy status to sulfonamides; Z88.8 Allergy status to other drugs, medicaments and biological substances
CPT/HCPCS: 36415; 80053; 84702; 85025; 86140; 96361; 96374; 96375; 99282; J1100; J1200